=== PATIENT | male | born 1970 | race Caucasian/White ===

== ENCOUNTER 2023-07-08 13:13 | Inpatient (IN) ==
--- NOTE | 2023-07-08 13:29 | ED Triage Note ---
Date of Service July 08, 2023 Provider in Triage Author: Dustin Vidal History of Present Illness This patient was briefly evaluated while in triage. An abbreviated physical exam was performed. This patient is a 52-year-old Male who presents to the ED for evaluation of chest pain, dyspnea, numbness in left hand and L side of face and indigestion/eructation. Started one hour ago. Cold sweat. BP 172/120 at home. Never happened before. No cardiac history. In chest and in back of chest. Described as a pressure. Did take 2 aspirin 1/2 hour ago. Physical Exam GENERAL: 52 year old male. In no acute distress. SKIN: No lesions or rashes. HEART: Regular rate and rhythm. LUNGS: Clear to auscultation. ABDOMEN: Bowel sounds normoactive. No guarding or rigidity. No tenderness of palpation. NEURO: Alert and oriented. No deficits. MUSCULOSKELETAL: No deformities to inspection of the extremities. PSYCH: Patient is pleasant and answers all questions appropriately. Initial orders for labs and / or imaging were placed and patient was placed in the waiting area until a bed is available. Please see further documentation for the full ED course.
[2023-07-08] MEDS ORDERED: ONDANSETRON INJ 2 MG/ML 2 ML VIAL IV STA (13:49)
[2023-07-08] MEDS ORDERED: MoRPHine SULFATE 4 MG/ML 1 ML CARP\\VIAL IV STA (13:49)
--- NOTE | 2023-07-08 13:52 | Emergency Department Note ---
Impression & Plan ACS (acute coronary syndrome), Chest pain, ST elevation myocardial infarction (STEMI), Elevated troponin I level ED Provider Note NAME: JENNIFER GARCÍA AGE: 52 SEX: M : 1970 ARRIVES VIA: Walk-In INFORMANT: Patient, ED PROVIDER(S): Titus Devries DO CHIEF COMPLAINT: Chest pain HPI: The patient is a 52-year-old male who presented to the emergency department for an evaluation of chest pain. The patient describes a rather acute onset of chest pain in his anterior chest. He now notices the pain also in his back. Initially he was very anxious and had some difficulty breathing. Now he states he does not have so much difficulty breathing but continues to have pain in his chest and his back. He denies having any lower extremity swelling or pain. He has had no recent traveling. He has no history of coronary artery disease. He states he has no family history of aortic dissection. I was alerted by the provider in triage that the patient would require room sooner so I evaluated the patient immediately in room A1. ROS: See above HPI for pertinent positives & negatives. A total of 10 systems reviewed and were otherwise negative. PAST MEDICAL HISTORY: See Below PAST SURGICAL HISTORY: See Below FAMILY HISTORY: See Below SOCIAL HISTORY: See Below HOME MEDICATIONS: See Below ALLERGIES: See Below VITALS: See Below PHYSICAL EXAMINATION: GENERAL: The patient is awake and alert. He is very anxious appearing. He appears to be uncomfortable EYES: The conjunctivae are clear. The pupils are round and reactive. EARS, NOSE, MOUTH AND THROAT: The nose is without any evidence of any deformity. NECK: The neck is nontender and supple. RESPIRATORY: Normal respiratory effort is noted there is no evidence of wheezing rhonchi or rales CARDIOVASCULAR: Regular rate and rhythm noted there no murmurs rubs or gallops normal S1 normal S2. GASTROINTESTINAL: The abdomen is soft. Abdomen is nontender. MUSCULOSKELETAL/EXTREMITIES: There is no evidence of gross deformity full range of motion is noted in the hips and shoulders. SKIN: There is no obvious evidence of any rash. There are no petechiae, pallor or cyanosis noted. Pulses are symmetric in both wrists and both feet. NEUROLOGIC: Patient is awake alert and oriented x3 strength is symmetric patellar reflexes are 2+ bilaterally MEDICAL DECISION MAKING: The patient is a 52-year-old male who presented to the emergency department for chest pain. The patient had chest pain with radiation to the back. The patient was taken directly to a critical room because of the elevation in his blood pressure as well as his chest pain. The patient's EKG did appear to be consistent with ischemia in the inferior and posterior guerra. He had no ST segment elevation. The patient was treated with pain medication as well as IV labetalol and IV Lopressor. The patient was reevaluated multiple times. Pain slowly improved. The patient was taken for CT of the chest to rule out dissection. This study was negative. I discussed the patient's laboratory and radiographic studies with him. I discussed his condition with the [facility] hospitalist group as well as the [facility] forestry conservation worker. The patient did have a bedside echo which appeared to show some wall motion abnormalities in the posterior wall. Given his findings as well as his EKG and elevation in troponin his case was also discussed with the cloth dye range operator. He was taken to the cardiac Spool Tender for further evaluation. Triage Nursing notes reviewed. Prior medical records reviewed Vital Signs: reviewed and remarkable for elevated blood pressure. Differential diagnosis: Cardiac ischemia, aortic dissection, pulmonary embolism, pneumothorax, pneumonia, pericarditis, myocarditis, esophageal rupture, GERD, cholecystitis, pancreatitis, musculoskeletal, as well as other pathologies. ER treatment provided: See below Diagnostics interpreted by me: ECG: EKG was obtained in the emergency department. My interpretation is sinus rhythm at 87 bpm. PVC was noted. ST segment depressions were noted in the anterior and inferior leads. No previous tracing was available. A second EKG was obtained in the emergency department. My interpretation is normal sinus rhythm at 87 bpm. There is no ectopy. There was inferior and anterior ST depressions noted. This compares similar to the tracing obtained earlier. Cardiac Monitoring: An order was placed for continuous cardiac monitoring. The monitor shows a rate of 85 bpm with sinus rhythm. Laboratory studies: As stated above and show below. Imaging studies: See below. Radiographic imaging was reviewed by myself Consultation(s): I discussed this case with Lindsey who is on for the [facility] hospitalist group. I discussed this case with Dr. Farrell who is on-call for [facility] cardiology. ED COURSE: Procedures: none Critical Care: I have personally spent greater than 45 minutes of critical care time in the direct management of this patient. This includes bedside care, interpretation of diagnostic studies, and testing, discussion with consultants, patient, and family members, and other required patient management activities. This 45 minutes is in excess of all separately billable procedures. Past Med/Surg History Social History Smoking Status: Current some day smoker Feels Safe at Home: Yes Allergies Allergies Allergy/AdvReac Type Severity Reaction Status Date / Time No Known Allergies Allergy Unverified 07/08/23 14:38 Home Meds Home Medications Medication Instructions Recorded Confirmed No Known Home Medications 07/08/23 07/08/23 Results & Data (ED) Vital Signs Vital Signs - 24 hr 07/08/23 13:26 07/08/23 14:14 07/08/23 14:26 Temperature 36.7 C Temperature Source Temporal Artery Scan Pulse Rate 98 H 95 H 82 Pulse Rate from SpO2 Sensor Respiratory Rate 20 22 Respiratory Effort / Characteristics Non-Labored Spontaneous Respiratory Depth Normal Blood Pressure 190/121 H Blood Pressure Mean 144 Pulse Oximetry 99 99 Oxygen Delivery Method Room Air Room Air Sepsis Recent Fever Within 48 Hours No Sepsis New/Unexplained Change in Mental Status No Sepsis Action Taken by Nursing No Action Required 07/08/23 14:27 07/08/23 14:30 07/08/23 14:39 Temperature Temperature Source Pulse Rate 85 93 H Pulse Rate from SpO2 Sensor 85 Respiratory Rate 13 Respiratory Effort / Characteristics Respiratory Depth Blood Pressure 176/117 H 178/105 H Blood Pressure Mean 136 Pulse Oximetry 100 100 Oxygen Delivery Method Room Air Sepsis Recent Fever Within 48 Hours Sepsis New/Unexplained Change in Mental Status Sepsis Action Taken by Nursing 07/08/23 14:58 07/08/23 15:00 Temperature Temperature Source Pulse Rate 91 H 88 Pulse Rate from SpO2 Sensor Respiratory Rate Respiratory Effort / Characteristics Respiratory Depth Blood Pressure 166/115 H 160/121 H Blood Pressure Mean Pulse Oximetry Oxygen Delivery Method Sepsis Recent Fever Within 48 Hours Sepsis New/Unexplained Change in Mental Status Sepsis Action Taken by [facility] Medications Current Medication List: was personally reviewed by me Laboratory Data Attestation: I reviewed the patient's lab results. 07/08/23 13:58 07/08/23 13:58 Lab Results 07/08/23 07/08/23 07/08/23 Range/Units 13:56 13:58 14:19 WBC 15.15 H (4.8-10.8) K/ul RBC 5.29 (4.70-6.10) M/uL Hgb 15.4 (14.0-18.0) g/dl POC Hgb 15.3 (14.0-18.0) g/dl Hct 43.8 (42.0-52.0) % POC Hct 45 (42-52) % MCV 82.8 (80.0-100.0) fL MCH 29.1 (25.0-34.0) pg MCHC 35.2 (32.0-36.0) g/dL RDW Std Deviation 39.0 (36.4-46.3) fL RDW Coeff of Pauline 12.9 (11.5-14.5) % Plt Count 275 (130-400) K/uL MPV 9.4 (9.4-12.4) fL Immature Gran % (Auto) 0.7 % Neut % (Auto) 73.1 % Lymph % (Auto) 20.2 % Charlton % (Auto) 5.1 % Eos % (Auto) 0.4 % Baso % (Auto) 0.5 % Neut # (Auto) 11.08 H (1.40-6.50) K/uL Lymph # (Auto) 3.06 (1.20-3.40) K/uL Charlton # (Auto) 0.78 H (0.11-0.59) K/uL Eos # (Auto) 0.06 (0.00-0.50) K/uL Baso # (Auto) 0.07 (0.00-0.20) K/uL Immature Gran # (Auto) 0.10 (0.01-0.20) K/uL PT 10.4 (9.0-12.0) Seconds INR 0.9 (0.9-1.1) APTT 24 (21-31) Seconds PTT Ratio 0.9 POC Sodium 139 (135-144) mmol/L Sodium 136 (136-145) mmol/L POC Potassium 4.1 (3.3-5.0) mmol/L Potassium 4.0 (3.5-5.1) mmol/L POC Chloride 103 (101-112) mmol/L Chloride 102 (98-107) mmol/L Carbon Dioxide 24 (21-32) mmol/L POC Total CO2 23 L (24-31) mmol/L Anion Gap 10 (3-11) POC Anion Gap 18.0 (16-25) mmol/L POC BUN 11 (7-18) mg/dl BUN 13 (6-23) mg/dl Creatinine 0.99 (0.6-1.4) mg/dl POC Creatinine 0.9 (0.6-1.3) mg/dl Est Cr Clr Drug Dosing 90.9 ml/min Est GFR ( Amer) 99.7 ml/min Est GFR (Non-Af Amer) 86.0 ml/min BUN/Creatinine Ratio 13.1 (10-20) Glucose 175 H (70-99(Fasting)) mg/dl POC Glucose (other) 181 H (70-99) mg/dl Calcium 9.5 (8.6-10.3) mg/dl POC Ioniz Calcium Michael 1.15 (1.12-1.32) mmol/l Magnesium 2.0 (1.7-2.4) mg/dl Total Bilirubin 0.7 (0.2-1.0) mg/dl AST 16 (13-39) U/L ALT 24 (7-52) U/L Alkaline Phosphatase 57 (34-104) U/L Troponin I High Sens 90.9 H* (0-20) pg/ml Total Protein 8.2 (6.0-8.3) gm/dl Albumin 4.9 (3.4-5.0) gm/dl Globulin 3.3 (2.5-4.0) gm/dl Albumin/Globulin Ratio 1.5 (0.9-2) Lipase 43 (11-82) U/L TSH 1.194 (0.300-4.500) uIu/ml Urine Color Yellow Urine Appearance Clear (Clear) Urine pH 5.5 (4.5-7.5) Ur Specific [place] 1.028 (1.000-1.030) Urine Protein 2+ H (Negative) Urine Glucose (UA) Negative (Negative) Urine Ketones Trace H (Negative) Urine Blood Negative (Negative) Urine Nitrite Negative (Negative) Urine Bilirubin Negative (Negative) Urine Urobilinogen Negative (Negative) Ur Leukocyte Esterase Negative (Negative) Urine WBC (Auto) 1-5 (0-5) /hpf Urine RBC (Auto) 0-4 (0-4) /hpf U Hyaline Cast (Auto) 0 (0-5) /lpf U Epithel Cells (Auto) 0-5 (0-5) /lpf Urine Bacteria (Auto) Negative (Negative) Administered Medications Metoprolol Tartrate (Metoprolol Tartrate 1 Mg/Ml Vial) 5 mg IV NOW STA Stop: 07/08/23 14:58 Last Admin: 07/08/23 15:00 Dose: 5 mg Documented By: AB Discontinued Medications Aspirin (Aspirin Chew 324 Mg) 324 mg PO NOW STA Stop: 07/08/23 14:36 Last Admin: 07/08/23 14:46 Dose: Not Given Documented By: Ioversol (Optiray 320 125ml) 117 ml IV ONCE ONE Stop: 07/08/23 14:08 Last Admin: 07/08/23 14:07 Dose: 117 ml Documented By: ZACHARY Labetalol HCl (Labetalol Hcl Iv 5 Mg/Ml 20ml) 10 mg IV NOW STA Stop: 07/08/23 14:36 Last Admin: 07/08/23 14:39 Dose: 10 mg Documented By: Co-signed By: DAWSON Metoprolol Tartrate (Metoprolol Tartrate 1 Mg/Ml Vial) Confirm Administered Dose 5 mg IV .STK-MED ONE Stop: 07/08/23 14:56 Last Admin: 07/08/23 15:11 Dose: Not Given Documented By: JASS Morphine Sulfate (Morphine Sulfate 4 Mg/Ml 1 Ml Carp\Vial) 4 mg IV NOW STA Stop: 07/08/23 13:50 Last Admin: 07/08/23 13:53 Dose: 4 mg Documented By: Ondansetron HCl (Ondansetron Inj 2 Mg/Ml 2 Ml Vial) 4 mg IV NOW STA Stop: 07/08/23 13:50 Last Admin: 07/08/23 13:53 Dose: 4 mg Documented By: Imaging Data Attestation: I personally reviewed and interpreted this imaging study as follows: My Impression: CT of the chest was obtained in the emergency department. My interpretation is no free air or definite infiltrate, final report below Radiologist's Impression: Chest CTA 07/08/23 13:29 CHEST CTA for AORTIC DISSECTION CT DOSE: 1240.68 mGy.cm HISTORY: Chest pain into back, hypertension, hand tingling TECHNIQUE: Multiaxial CT images of the chest were performed both before and after the intravenous administration of contrast to evaluate the aorta. 3D/MIP images were also obtained. Sagittal and coronal reformations were also reviewed. A dose lowering technique was utilized adhering to the principles of ALARA. COMPARISON STUDY: None. FINDINGS: Noncontrast imaging through the chest shows no evidence for an intramural hematoma within the thoracic aorta. Normal caliber thoracic aorta with no evidence for a dissection. The central pulmonary arteries are patent. The heart is normal in size. No pleural or pericardial effusions. The thyroid gland enhances normally. No mediastinal or hilar lymphadenopathy. Normal esophagus. Limited views the upper abdomen demonstrate a normal spleen and adrenal glands. Hepatic steatosis. No acute fractures. No pneumothorax. A 4 mm nodule within the lingula on image 186. Small bibasilar linear densities favor subsegmental atelectasis are scarring. A 4 mm nodule within the left lower lobe on image 190 and a 4 mm nodule within the left lower lobe on image 186. A 7 mm groundglass nodule right upper lobe on image 152. A 3 mm right middle lobe nodule on image 179. No focal lung consolidations to suggest a pneumonia. No evidence for pulmonary edema. IMPRESSION: 1. No evidence for an aortic dissection. 2. Hepatic steatosis. 3. A few scattered subcentimeter pulmonary nodules as described above. Please refer to the chart below for recommended follow-up. Please refer to below summary of Fleischner criteria recommendations for follow- up of incidental CT nodules (Fernando Man, Guidelines for management of small pulmonary nodules detected on CT scans: A statement from the Fleischner Society, Radiology 237: [id number].) SOLID NODULES Solitary nodule size: <6 mm * Low risk patients: no follow-up needed * high risk patients: optional CT at 12 months Solitary nodule size: 6-8 mm * Low risk patients: follow-up at 6-12 months, then consider further follow-up at 18-24 months * high risk patients: initial follow-up CT at 6-12 months and then at 18-24 months if no change Solitary nodule size: >8 mm * either low or high risk patients - consider follow-up CT at 3 months, and/or CT-PET, and/or biopsy Multiple nodules size: <6 mm * Low risk patients: no routine follow-up * high risk patients: optional CT at 12 months Multiple nodules size: 6-8 mm * Low risk patients: follow-up at 3-6 months, then consider further follow-up at 18-24 months * high risk patients: follow-up at 3-6 months, then at 18-24 months if no change Multiple nodules size: >8 mm * Low risk patients: follow-up at 3-6 months, then consider further follow-up at 18-24 months * high risk patients: follow-up at 3-6 months, then at 18-24 months if no change Note: newly detected indeterminate nodule in persons 35 years of age or older. * Low risk patients: minimal or absent history of smoking and/or other known risk factors * high risk patients: history of smoking or of other known risk factors (e.g. first degree relative with lung cancer, or exposure to asbestos, radon, uranium) * if a nodule up to 8 mm is partly solid or is ground glass further follow-up is required after 24 months to exclude possible slow growing adenocarcinoma (MICHAEL) SUBSOLID NODULES Solitary pure ground-glass nodule * nodule size <6 mm - no CT follow-up required * nodule size >=6 mm - follow-up CT at 6-12 months, then every 2 years until 5 years Solitary part-solid nodule * nodule size <6 mm - no CT follow-up required * nodule size >=6 mm - follow-up CT at 3-6 months. If unchanged, and solid component remains <6 mm, then annual follow-up for 5 years Multiple subsolid nodules * nodule size <6 mm - follow-up CT at 3-6 months, consider further follow-up at 2 and 4 years if stable * nodule size >=6 mm - follow-up CT at 3-6 months, subsequent management based on the most suspicious nodule(s) ACT 112: Positive. There are findings on this exam that require communication between the performing entity and the patient following Patient Test Result Information Act ([place] Act 112) guidelines. Electronically signed by: Samir Payton M.D. 07/08/2023 2:32 PM Discharge Plan Visit Data Chief Complaint: Cardiac Assessment Stated Complaint: CHEST PAINS, NUMB HAND, FACIAL NUMBNESS, SOB ED Provider: Titus Devries Discharge Problem: ACS (acute coronary syndrome), Chest pain, ST elevation myocardial infarction (STEMI), Elevated troponin I level Patient Disposition: Being Evaluated by Hospitalist Forms Stand Alone Forms: [employer] Prescriptions Prescriptions: No Action No Known Home Medications Referrals Referrals: PCP,NO [Primary Care Provider] - Discharge Problem: Chest pain Qualifiers: Chest pain type: unspecified Qualified Code(s): R07.9 - Chest pain, unspecified ST elevation myocardial infarction (STEMI) Qualifiers: Involved coronary artery: unspecified coronary artery Qualified Code(s): I21.3 - ST elevation (STEMI) myocardial infarction of unspecified site
[2023-07-08] MEDS ORDERED: OPTIRAY 320 125ml IV ONE (14:07)
[2023-07-08 14:09] LABS: iSTAT Creatinine 0.9 mg/dl (0.6-1.3); iSTAT Hemoglobin 15.3 g/dl (14.0-18.0); iSTAT Ionized Calcium 1.15 mmol/l (1.12-1.32); iSTAT Potassium 4.1 mmol/L (3.3-5.0)
[2023-07-08 14:10] LABS: Basophils # (auto) 0.07 K/uL (0.00-0.20); Basophils % (auto) 0.5 %; Eosinophils # (auto) 0.06 K/uL (0.00-0.50); Eosinophils % (auto) 0.4 %; Hematocrit (blood only) 43.8 % (42.0-52.0); Hemoglobin 15.4 g/dl (14.0-18.0); Immature Granulocytes % (auto) 0.7 %; Lymphocytes # (auto) 3.06 K/uL (1.20-3.40); Lymphocytes % (auto) 20.2 %; Mean Corpuscular Hemoglobin 29.1 pg (25.0-34.0); Mean Corpuscular Hgb Conc 35.2 g/dL (32.0-36.0); Mean Corpuscular Volume 82.8 fL (80.0-100.0); Mean Platelet Volume 9.4 fL (9.4-12.4); Monocytes # (auto) 0.78 K/uL (0.11-0.59); Monocytes % (auto) 5.1 %; Neutrophils # (auto) 11.08 K/uL (1.40-6.50); Neutrophils % (auto) 73.1 %; Platelet Count 275 K/uL (130-400); RDW Coefficient of Variation 12.9 % (11.5-14.5); Red Blood Count 5.29 M/uL (4.70-6.10); White Blood Count 15.15 K/ul (4.8-10.8)
[2023-07-08 14:28] LABS: Albumin Globulin Ratio 1.5 (0.9-2); Albumin Level 4.9 gm/dl (3.4-5.0); BUN Creatinine Ratio 13.1 (10-20); Bilirubin,Total 0.7 mg/dl (0.2-1.0); Calcium 9.5 mg/dl (8.6-10.3); Creatinine Clr Calc Pharmacy 90.9 ml/min; Est GFR (African American) 99.7 ml/min; Globulin 3.3 gm/dl (2.5-4.0); Total Protein 8.2 gm/dl (6.0-8.3)
--- NOTE | 2023-07-08 14:33 | CT Scan Report ---
CHEST CTA for AORTIC DISSECTION CT DOSE: 1240.68 mGy.cm HISTORY: Chest pain into back, hypertension, hand tingling TECHNIQUE: Multiaxial CT images of the chest were performed both before and after the intravenous adm inistration of contrast to evaluate the aorta. 3D/MIP images were also obtained. Sagittal and coronal reformations were also reviewed. A dose lowering technique was utilized adhering to the principles of ALARA. COMPARISON STUDY: None. FINDINGS: Noncontrast imaging through the chest shows no evidence for an intramural hematoma within t he thoracic aorta. Normal caliber thoracic aorta with no evidence for a dissection. The central pulmo nary arteries are patent. The heart is normal in size. No pleural or pericardial effusions. The thyro id gland enhances normally. No mediastinal or hilar lymphadenopathy. Normal esophagus. Limited views the upper abdomen demonstrate a normal spleen and adrenal glands. Hepatic steatosis. No acute fractur es. No pneumothorax. A 4 mm nodule within the lingula on image 186. Small bibasilar linear densities favor subsegmental atelectasis are scarring. A 4 mm nodule within the left lower lobe on image 190 an d a 4 mm nodule within the left lower lobe on image 186. A 7 mm groundglass nodule right upper lobe o n image 152. A 3 mm right middle lobe nodule on image 179. No focal lung consolidations to suggest a pneumonia. No evidence for pulmonary edema. IMPRESSION: 1. No evidence for an aortic dissection. 2. Hepatic steatosis. 3. A few scattered subcentimeter pulmonary nodules as described above. Please refer to the chart belo w for recommended follow-up. Please refer to below summary of Fleischner criteria recommendations for follow-up of incidental CT n odules (Fernando Man, Guidelines for management of small pulmonary nodules detected on CT scans: A sta tement from the Fleischner Society, Radiology 237: [phone].) SOLID NODULES Solitary nodule size: <6 mm * Low risk patients: no follow-up needed * high risk patients: optional CT at 12 months Solitary nodule size: 6-8 mm * Low risk patients: follow-up at 6-12 months, then consider further follow-up at 18-24 months * high risk patients: initial follow-up CT at 6-12 months and then at 18-24 months if no change Solitary nodule size: >8 mm * either low or high risk patients - consider follow-up CT at 3 months, and/or CT-PET, and/or biopsy Multiple nodules size: <6 mm * Low risk patients: no routine follow-up * high risk patients: optional CT at 12 months Multiple nodules size: 6-8 mm * Low risk patients: follow-up at 3-6 months, then consider further follow-up at 18-24 months * high risk patients: follow-up at 3-6 months, then at 18-24 months if no change Multiple nodules size: >8 mm * Low risk patients: follow-up at 3-6 months, then consider further follow-up at 18-24 months * high risk patients: follow-up at 3-6 months, then at 18-24 months if no change Note: newly detected indeterminate nodule in persons 35 years of age or older. * Low risk patients: minimal or absent history of smoking and/or other known risk factors * high risk patients: history of smoking or of other known risk factors (e.g. first degree relative with lung cancer, or exposure to asbestos, radon, uranium) * if a nodule up to 8 mm is partly solid or is ground glass further follow-up is required after 24 m onths to exclude possible slow growing adenocarcinoma (MICHAEL) SUBSOLID NODULES Solitary pure ground-glass nodule * nodule size <6 mm - no CT follow-up required * nodule size >=6 mm - follow-up CT at 6-12 months, then every 2 years until 5 years Solitary part-solid nodule * nodule size <6 mm - no CT follow-up required * nodule size >=6 mm - follow-up CT at 3-6 months. If unchanged, and solid component remains <6 mm, then annual follow-up for 5 years Multiple subsolid nodules * nodule size <6 mm - follow-up CT at 3-6 months, consider further follow-up at 2 and 4 years if sta ble * nodule size >=6 mm - follow-up CT at 3-6 months, subsequent management based on the most suspiciou s nodule(s) ACT 112: Positive. There are findings on this exam that require communication between the performing entity and the patient following Patient Test Result Information Act ([place] Act 112) guidelines. Electronically signed by: Samir Payton M.D. 07/08/2023 2:32 PM
[2023-07-08] MEDS ORDERED: LABETALOL HCL IV 5 MG/ML 20ML IV STA (14:35)
[2023-07-08] MEDS ORDERED: ASPIRIN CHEW 324 MG PO STA (14:35)
[2023-07-08 14:37] LABS: Troponin I High Sensitivity 90.9 pg/ml (0-20)
[2023-07-08] MEDS ORDERED: Heparin IV Adult Wt-Based Low-Dose w/ INITIAL Bolus Protocol IV STA (14:43)
[2023-07-08 14:44] LABS: Thyroid Stimulating Hormone 1.194 uIu/ml (0.300-4.500)
--- NOTE | 2023-07-08 14:50 | Electrocardiogram Report ---
Test Reason : Blood Pressure : / mmHG Vent. Rate : 087 BPM Atrial Rate : 087 BPM P-R Int : 170 ms QRS Dur : 090 ms QT Int : 372 ms P-R-T Axes : 077 073 060 degrees QTc Int : 447 ms Sinus rhythm with occasional Premature ventricular complexes Left atrial enlargement Diffuse Nonspecific ST abnormality Abnormal ECG No previous ECGs available Confirmed by Jayden Mckeon ([id number]) on 07/08/2023 2:49:49 PM Referred By: REFERRED SELF Confirmed By:Jayden Mckeon
[2023-07-08 14:51] LABS: Appearance Urine Clear (Clear); Bacteria Urine Automated Negative (Negative); Bilirubin Urine Negative (Negative); Blood Urine Negative (Negative); Cast Urine Automated 0 /lpf (0-5); Color Urine Yellow; Epithelial Cell Urine Auto 0-5 /lpf (0-5); Glucose Urine UA Negative (Negative); Ketones Urine Trace (Negative); Leukocyte Esterase Urine Negative (Negative); Nitrite Urine Negative (Negative); Protein Urine 2+ (Negative); RBC Urine Automated 0-4 /hpf (0-4); Specific Gravity Urine 1.028 (1.000-1.030); Urobilinogen Urine Negative (Negative); pH Urine 5.5 (4.5-7.5)
[2023-07-08] MEDS ORDERED: METOPROLOL TARTRATE 1 MG/ML VIAL IV ONE (14:55)
[2023-07-08] MEDS ORDERED: METOPROLOL TARTRATE 1 MG/ML VIAL IV STA (14:57)
[2023-07-08] MEDS ORDERED: HEPARIN SOD (PORCINE) 1000 UNIT/ML IV ONE ×3 (14:58→17:00)
[2023-07-08 14:59] LABS: INR 0.9 (0.9-1.1); Partial Thromboplastin Ratio 0.9; Partial Thromboplastin Time 24 Seconds (21-31); Prothrombin Time 10.4 Seconds (9.0-12.0)
[2023-07-08] MEDS ORDERED: HEPARIN SODIUM/DEXTROSE 25,000 UNITS/500 ML BAG IV SCH ×2 (15:00→16:45)
--- NOTE | 2023-07-08 15:24 | History & Physical Report ---
Date of Service July 08, 2023 Assessment & Plan (1) Chest pain: (2) NSTEMI (non-ST elevated myocardial infarction): Plan: Patient is 48-year-old male with PMH tobacco use presented to ER with c/o CP, SOB, diaphoresis today. Toady patient arrived to ER with continued chest pain and back pain. He was hypertensive with BP 190/121 and pulse of 98, R: 20, 99% on RA and was afebrile. Initial concern for dissection and had CTA chest that was negative for aortic dissection. Initial troponin: 90. EKG with sinus rhythm rate 87 with PVC, + ST depression septal, anterior leads. In ER given labetalol 10mg IV, Lopressor 5mg IV, Zofran, morphine 4mg IV. Patient reports continued CP 6/10 on pain scale. Repeat vitals with HR: 88, BP: 160/121. Heparin was ordered however patient taken to liaison inspection laboratory assistant prior to administration. Patient has refused cardiac cath at this time. Echo: EF: 55-60%, mild concentric LVH, small sized apical wall motion abnormality with hypokinesis of the segments, Grade I diastolic dysfunction Monitor Vitals Repeat EKG in am Will trend troponin lipid panel in AM. Start atorvastatin Start daily aspirin Start metoprolol tartrate 25mg po BID Nitropaste IV Heparin Morphine prn Cardiology consult, Seen by Dr Farrell, and interventionalist car painter, Dr Ferrara. Patient has denied cardiac cath. It is reported he may re-consider tomorrow. Will make NPO midnight CBC, BMP in am (3) Elevated glucose: Plan: Random glucose: 175 A1c in AM Novolog sliding scale per protocol (4) Abnormal CT scan, chest: (5) Dyslipidemia: Plan: 07/16/21 Lipid panel: Total: 252, LDL: 180, HDL: 41, Triglycerides: 155. Lipid panel in am Start atorvastatin (6) Tobacco use: Plan: Patient reported to have cut back Smoking cessation encouraged (7) Pulmonary nodules: Plan: CTA Chest: 4 mm nodule, 4 mm nodule within the left lower lobe, 4 mm nodule within the left lower lobe, a 7 mm groundglass nodule right upper lobe, 3 mm right middle lobe nodule Will need follow up with outpatient CT chest DVT Prophylaxis On IV Heparin Full Code as per discussion with pt Does not follow with PCP regularly, In past has been seen by [facility] PCP for routine care Pt was seen and care coordinated with Dr Alvarado. See addendum History of Present Illness Chief Complaint: CP Primary Care Provider: NO PCP Patient is 48-year-old male with PMH tobacco use presented to ER with c/o CP today. History obtained from patient and outpatient chart review. 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 Also describes pain in his back. He states felt anxious and SOB. States had sweats, left hand numbness, and indigestion sensation. Reports took two aspirin prior to ER arrival. States had significant other come get him from work and take him home as he wasn't feeling well. Then decided to present to ER. Denies fever/chills, N/V/D/C, DOE, dizziness, syncope, vision changes, cough, sore throat, rhinorrhea, abdominal pain, extremity weakness, extremity edema, rashes, or urinary symptoms. Caroline patient arrived to ER with continued chest pain and back pain. He was hypertensive with BP 190/121 and pulse of 98, R: 20, 99% on RA and was afebrile. Initial concern for dissection and had CTA chest that was negative for aortic dissection. Initial troponin: 90. EKG with sinus rhythm rate 87 with PVC, + ST depression septal, anterior leads. In ER given labetalol 10mg IV, Lopressor 5mg IV, Zofran, morphine 4mg IV. Patient reports continued CP 6/10 on pain scale. Repeat vitals with HR: 88, BP: 160/121. Heparin was ordered however patient taken to liaison inspection laboratory assistant prior to administration. Patient has refused cardiac cath at this time. Per outpatient chart review: 07/16/21 seen in outpatient PCP office for intermittent episodes of CP, SOB lasted several minutes and self-resolved. No reported exercise intolerance at that time. EKG at that time was sinus rhythm, right atrial enlargement. 07/16/21 Lipid panel: Total: 252, LDL: 180, HDL: 41, Triglycerides: 155. Allergies Allergy/AdvReac Type Severity Reaction Status Date / Time No Known Allergies Allergy Unverified 07/08/23 14:38 Home Medications Medication Instructions Recorded Confirmed Type No Known Home Medications 07/08/23 07/08/23 History Past Med/Surg History Medical History Dyslipidemia Tobacco use Family History Father Dyslipidemia Cancer Other Diabetes Social History Smoking Status: Current every day smoker Tobacco Type: Cigarettes Cigarettes Per Day: 2-3; Second Hand Exposure: No; Do You Dip or Chew Tobacco: No; Tobacco Cessation Education Requested by Patient: No Hx Alcohol Use: Yes Alcohol type: beer Hx Substance Use: No Preferred Language: Occitan Communication Ability: Effective Director Of Field Sales Required: No Beliefs That Will Affect Care: None Current Living Situation: Spouse and Family Other Information That Helps Us Care for You: No Feels Safe at Home: Yes Safety Concerns: Feels Safe At This Time Assistive Devices: Glasses Review of Systems Review of Systems: All systems reviewed & are unremarkable except as noted in HPI & below Physical Exam Physical Exam: PE per Dr Alvarado Results & Data Results & Data Vital Signs (Past 12 Hours) Vital Signs Temp Pulse Resp BP Pulse Ox O2 Del Method 07/08/23 15:17 Room Air 07/08/23 15:00 160/121 H 07/08/23 15:00 86 22 98 07/08/23 15:00 88 160/121 H 07/08/23 14:58 89 21 98 07/08/23 14:58 166/115 H 07/08/23 14:58 91 H 166/115 H 07/08/23 14:40 96 H 22 100 07/08/23 14:40 178/105 H 07/08/23 14:39 93 H 178/105 H 07/08/23 14:30 176/117 H 07/08/23 14:30 84 15 100 07/08/23 14:30 85 13 176/117 H 100 07/08/23 14:27 100 Room Air 07/08/23 14:26 82 07/08/23 14:14 95 H 22 99 Room Air 07/08/23 13:26 36.7 C 98 H 20 190/121 H 99 Room Air Laboratory Results Short CBC 07/08/23 Range/Units 13:58 WBC 15.15 H (4.8-10.8) K/ul Hgb 15.4 (14.0-18.0) g/dl Hct 43.8 (42.0-52.0) % Plt Count 275 (130-400) K/uL BMP 07/08/23 13:58 Sodium 136 Potassium 4.0 Chloride 102 Carbon Dioxide 24 BUN 13 Creatinine 0.99 Glucose 175 H Calcium 9.5 Liver Function 07/08/23 Range/Units 13:58 Total Bilirubin 0.7 (0.2-1.0) mg/dl AST 16 (13-39) U/L ALT 24 (7-52) U/L Alkaline Phosphatase 57 (34-104) U/L Albumin 4.9 (3.4-5.0) gm/dl Urine 07/08/23 Range/Units 14:19 Urine Color Yellow Urine Appearance Clear (Clear) Urine pH 5.5 (4.5-7.5) Ur Specific [place] 1.028 (1.000-1.030) Urine Protein 2+ H (Negative) Urine Glucose (UA) Negative (Negative) Diagnostic Findings Chest CTA 07/08/23 13:29 CHEST CTA for AORTIC DISSECTION CT DOSE: 1240.68 mGy.cm HISTORY: Chest pain into back, hypertension, hand tingling TECHNIQUE: Multiaxial CT images of the chest were performed both before and after the intravenous administration of contrast to evaluate the aorta. 3D/MIP images were also obtained. Sagittal and coronal reformations were also reviewed. A dose lowering technique was utilized adhering to the principles of ALARA. COMPARISON STUDY: None. FINDINGS: Noncontrast imaging through the chest shows no evidence for an intramural hematoma within the thoracic aorta. Normal caliber thoracic aorta with no evidence for a dissection. The central pulmonary arteries are patent. The heart is normal in size. No pleural or pericardial effusions. The thyroid gland enhances normally. No mediastinal or hilar lymphadenopathy. Normal esophagus. Limited views the upper abdomen demonstrate a normal spleen and adrenal glands. Hepatic steatosis. No acute fractures. No pneumothorax. A 4 mm nodule within the lingula on image 186. Small bibasilar linear densities favor subsegmental atelectasis are scarring. A 4 mm nodule within the left lower lobe on image 190 and a 4 mm nodule within the left lower lobe on image 186. A 7 mm groundglass nodule right upper lobe on image 152. A 3 mm right middle lobe nodule on image 179. No focal lung consolidations to suggest a pneumonia. No evidence for pulmonary edema. IMPRESSION: 1. No evidence for an aortic dissection. 2. Hepatic steatosis. 3. A few scattered subcentimeter pulmonary nodules as described above. Please refer to the chart below for recommended follow-up. Please refer to below summary of Fleischner criteria recommendations for follow- up of incidental CT nodules (Fernando Man, Guidelines for management of small pulmonary nodules detected on CT scans: A statement from the Fleischner Society, Radiology 237: [phone].) SOLID NODULES Solitary nodule size: <6 mm * Low risk patients: no follow-up needed * high risk patients: optional CT at 12 months Solitary nodule size: 6-8 mm * Low risk patients: follow-up at 6-12 months, then consider further follow-up at 18-24 months * high risk patients: initial follow-up CT at 6-12 months and then at 18-24 months if no change Solitary nodule size: >8 mm * either low or high risk patients - consider follow-up CT at 3 months, and/or CT-PET, and/or biopsy Multiple nodules size: <6 mm * Low risk patients: no routine follow-up * high risk patients: optional CT at 12 months Multiple nodules size: 6-8 mm * Low risk patients: follow-up at 3-6 months, then consider further follow-up at 18-24 months * high risk patients: follow-up at 3-6 months, then at 18-24 months if no c hange Multiple nodules size: >8 mm * Low risk patients: follow-up at 3-6 months, then consider further follow-up at 18-24 months * high risk patients: follow-up at 3-6 months, then at 18-24 months if no change Note: newly detected indeterminate nodule in persons 35 years of age or older. * Low risk patients: minimal or absent history of smoking and/or other known risk factors * high risk patients: history of smoking or of other known risk factors (e.g. first degree relative with lung cancer, or exposure to asbestos, radon, uranium) * if a nodule up to 8 mm is partly solid or is ground glass further follow-up is required after 24 months to exclude possible slow growing adenocarcinoma (MICHAEL) SUBSOLID NODULES Solitary pure ground-glass nodule * nodule size <6 mm - no CT follow-up required * nodule size >=6 mm - follow-up CT at 6-12 months, then every 2 years until 5 years Solitary part-solid nodule * nodule size <6 mm - no CT follow-up required * nodule size >=6 mm - follow-up CT at 3-6 months. If unchanged, and solid component remains <6 mm, then annual follow-up for 5 years Multiple subsolid nodules * nodule size <6 mm - follow-up CT at 3-6 months, consider further follow-up at 2 and 4 years if stable * nodule size >=6 mm - follow-up CT at 3-6 months, subsequent management based on the most suspicious nodule(s) ACT 112: Positive. There are findings on this exam that require communication between the performing entity and the patient following Patient Test Result Information Act ([place] Act 112) guidelines. Electronically signed by: Samir Payton M.D. 07/08/2023 2:32 PM ECG Additional Comments: EKG with sinus rhythm rate 87 with PVC, + ST depression septal, anterior leads per my interpretation Supervising Physician Co-Signing Physician Notes I have seen and examined the patient and have discussed the case with the provider above. I agree with the assessment and plan as stated. 52-year-old man presents with acute coronary syndrome. Workup includes an abnormal EKG, elevation and highly sensitive troponin and echocardiogram with LAD territory wall motion abnormality. As noted above, he is declining heart catheterization despite recommendations from cardiology to proceed. He is still reporting a low amount of chest discomfort despite the addition of Nitropaste. We discussed adding additional morphine at this time and he was fine with that. and son were at bedside and assist with history. 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 He states he slept 1 hour and took 4 cups of coffee which is normal for him in fact he drinks typically more than that on a daily basis. 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 He has had symptoms for the majority of this day. He smokes occasionally, and denies any known family history of early CAD. Father from pancreatic cancer. He reports having chest pain in the past that he felt was stress related. He does not offer if this was ever worked up medically. On exam he is mentating normally and in no acute distress. BP is 166/104 pulse 91, no increased respiratory effort and he is oxygenating well on room air. He is afebrile. Cardiac exam reveals regular rate and rhythm with S1/2 heard and no murmurs Rubs. He Has No Peripheral Edema. There Is No JVD Present. Extremities Are Warm and Well-Perfused. Lungs Are Clear to Auscultation Bilaterally. Abdomen Soft Nontender Not distended. Workup as noted above. Repeat highly sensitive troponin is 107,000 (from 90). Labs, EKG and imaging reviewed. This is a 52 yo smoker with dyslipidemia and elevated blood pressure presenting with an NSTEMI. We will cont medical therapy with metoprolol, nitropaste, morphine PRN, atorvastatin and aspirin. He continues to have chest pain and is getting more morphine now. He and his were counseled on worsening symptoms overnight. Patient is wanting to re-evaluate heart catheterization in the morning. DO Christiano (1) Chest pain Chest pain type: unspecified Qualified Code(s): R07.9 - Chest pain, unspecified
--- NOTE | 2023-07-08 16:20 | Cardiology Consultation ---
Date of Consultation July 08, 2023 Assessment & Plan (1) NSTEMI (non-ST elevated myocardial infarction): (2) Tobacco use: (3) Dyslipidemia: Plan -Patient presents with symptoms consistent with angina new onset today, with abnormal EKG suggestive of anterior ischemia, elevation in high-sensitivity troponin at 91 PG per mL. -Echocardiogram reveals LAD territory wall motion abnormality. Patient had received aspirin, as well as a dose of labetalol. Metoprolol 5 minutes IV administered while I was at the bedside in the emergency department for further heart rate and blood pressure control. Patient with ongoing angina. I had a discussion with the patient and his spouse. My recommendation was for emergent cardiac catheterization. I discussed the risks and benefits of cardiac catheterization with the patient in detail as well as his spouse. The case was discussed with Dr. Ferrara of interventional cardiology and the patient was transferred to the cardiac catheterization laboratory holding area. Dr. Ferrara discussed the patient's findings with him and the patient declines cardiac catheterization today. He states he would like to think about things more. Will therefore transfer the patient to the PCU pending bed availability, and proceed with ongoing medication therapy with aspirin and metoprolol tartrate 25 mg twice daily. Topical nitroglycerin will be applied for further blood pressure and antianginal effect. The patient had a lipid panel performed as an outpatient in June,. It was likely a nonfasting sample as it was drawn at just before 3 in the afternoon at the time. Total cholesterol was 252, and the LDL cholesterol was 180 mg/dL. A previous sample performed in 2009 revealed a total cholesterol of 226 and an LDL cholesterol of 152 mg/dL. Findings would suggest the patient has had longstanding uncontrolled, untreated dyslipidemia. Will repeat a lipid panel tomorrow, and start high intensity statin therapy in the meantime. Case discussed with Dia Queen [facility] , and Dr Ferrara for the purpose of coordinating care. I spent a total of 55 minutes on the date of service in preparation, delivery, and documentation of the care provided to this patient, excluding any time spent in the performance of separately billed services. History of Present Illness Attending Physician: Buster Ferrara MD, PhD History of Present Illness Mr Mcneil is a 52 year old male seen in cardiology consultation per the request of Dr Devries for the evaluation of chest pain with findings concerning for an acute coronary syndrome. Patient initially seen by the undersigned at 1458. At that time he described ongoing 6/10 midline chest discomfort. An echocardiogram was performed at the bedside revealing a small focal apical wall motion abnormality. 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 He states he had not had such discomfort before. He presented to the emergency department for evaluation. His initial blood pressure as obtained at 1326 was 190/121. A CT angiogram of the chest was performed that was negative for thoracic aortic dissection. An EKG was performed at 1343 that revealed sinus rhythm at [address] segment depression in the anterior precordial leads V1V4 with reciprocal subtle ST elevation in lead aVR . A PVC was also noted. The repolarization changes are abnormal and suggestive of ischemia and are new compared to a previous outpatient tracing dating back to June, per patient's outpatient [facility] chart. Family History: Patient states his father had high cholesterol. He perhaps had a heart problem but the patient does not know any specifics Social History: Patient is and is accompanied by his spouse at the bedside. He is originally from [facility]. 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 Allergies Allergy/AdvReac Type Severity Reaction Status Date / Time No Known Allergies Allergy Unverified 07/08/23 14:38 Home Medications Medication Instructions Recorded Confirmed Type No Known Home Medications 07/08/23 07/08/23 History Patient History Medical History Tobacco use Family History Father Dyslipidemia Cancer Other Diabetes Social History Smoking Status: Current some day smoker Feels Safe at Home: Yes Review of Systems Review of Systems: All systems reviewed & are unremarkable except as noted in HPI & below Physical Exam Constitutional: WD/WN, vitals as above Eyes: PERRL, conjunctivae normal, anicteric sclerae Respiratory: normal respiratory effort, lungs clear to auscultation Cardiovascular: RRR, no murmur, no edema Gastrointestinal (Abdomen): normal bowel sounds, soft, nontender, no hepatosplenomegaly Neurologic: PERRL, EOMI, accommodation nl, no face palsy, no dysarthria Results & Data Vital Signs (Past 12 Hours) Vital Signs Temp Pulse Resp BP Pulse Ox O2 Del Method 07/08/23 15:17 Room Air 07/08/23 15:00 160/121 H 07/08/23 15:00 86 22 98 07/08/23 15:00 88 160/121 H 07/08/23 14:58 89 21 98 07/08/23 14:58 166/115 H 07/08/23 14:58 91 H 166/115 H 07/08/23 14:40 96 H 22 100 07/08/23 14:40 178/105 H 07/08/23 14:39 93 H 178/105 H 07/08/23 14:30 176/117 H 07/08/23 14:30 84 15 100 07/08/23 14:30 85 13 176/117 H 100 07/08/23 14:27 100 Room Air 07/08/23 14:26 82 07/08/23 14:14 95 H 22 99 Room Air 07/08/23 13:26 36.7 C 98 H 20 190/121 H 99 Room Air Laboratory Results Cardiac Enzymes 07/08/23 Range/Units 13:58 AST 16 (13-39) U/L Troponin I High Sens 90.9 H* (0-20) pg/ml Coagulation 07/08/23 Range/Units 13:58 PT 10.4 (9.0-12.0) Seconds APTT 24 (21-31) Seconds CBC 07/08/23 Range/Units 13:58 WBC 15.15 H (4.8-10.8) K/ul RBC 5.29 (4.70-6.10) M/uL Hgb 15.4 (14.0-18.0) g/dl Hct 43.8 (42.0-52.0) % Plt Count 275 (130-400) K/uL Neut # (Auto) 11.08 H (1.40-6.50) K/uL Lymph # (Auto) 3.06 (1.20-3.40) K/uL [place] # (Auto) 0.78 H (0.11-0.59) K/uL Eos # (Auto) 0.06 (0.00-0.50) K/uL Baso # (Auto) 0.07 (0.00-0.20) K/uL Comprehensive Metabolic Panel 07/08/23 Range/Units 13:58 Sodium 136 (136-145) mmol/L Potassium 4.0 (3.5-5.1) mmol/L Chloride 102 (98-107) mmol/L Carbon Dioxide 24 (21-32) mmol/L BUN 13 (6-23) mg/dl Creatinine 0.99 (0.6-1.4) mg/dl Glucose 175 H (70-99(Fasting)) mg/dl Calcium 9.5 (8.6-10.3) mg/dl AST 16 (13-39) U/L ALT 24 (7-52) U/L Alkaline Phosphatase 57 (34-104) U/L Total Protein 8.2 (6.0-8.3) gm/dl Albumin 4.9 (3.4-5.0) gm/dl Intake and Output 07/08/23 07/08/23 07/08/23 06:59 14:59 22:59 Other: Weight 88.9 kg Weight Measurement Method Chair Scale Patient Weight 07/09/23 06:59 Weight 88.9 kg Diagnostic Findings Echocardiogram performed at the bedside and reviewed/interpreted independently: Small focal apical wall motion abnormality. LVEF normal at 55-60%. Mild mitral regurgitation. Grade 1 diastolic dysfunction.
[2023-07-08] MEDS ORDERED: Heparin IV Adult Wt-Based Standard w/ INITIAL Bolus Protocol IV SCH (16:22)
[2023-07-08] MEDS ORDERED: HEPARIN 25000 UNIT/500 ML D5W IV ONE (16:23)
[2023-07-08] MEDS ORDERED: NITROGLYCERIN 2% OINTMENT 30GM TUBE EXT SCH (16:30)
[2023-07-08] MEDS ORDERED: POLYETHYLENE (MIRALAX) 17 GM PACK PO PRN (16:39)
[2023-07-08] MEDS ORDERED: ONDANSETRON INJ 2 MG/ML 2 ML VIAL IV PRN (16:39)
[2023-07-08] MEDS ORDERED: ACETAMINOPHEN 325 MG TAB PO PRN (16:39)
[2023-07-08] MEDS ORDERED: GLUCAGON FOR INJ 1 MG VIAL SQ PRN ×2 (17:03→22:35)
[2023-07-08] MEDS ORDERED: GLUCOSE 10 TAB/TUBE PO PRN ×2 (17:03→22:35)
[2023-07-08] MEDS ORDERED: CARBOHYDRATES FOR HYPOGLYCEMIA PO PRN ×2 (17:03→22:35)
[2023-07-08] MEDS ORDERED: DEXTROSE 50% 50 ML SYRINGE IV PRN ×2 (17:03→22:35)
[2023-07-08] MEDS ORDERED: GLUCOSE 40% GEL 15 GM TUBE PO PRN ×2 (17:03→22:35)
[2023-07-08] MEDS ORDERED: MoRPHine SULFATE 2 MG/ML CARP IV STA (18:16)
[2023-07-08] MEDS ORDERED: MoRPHine SULFATE 2 MG/ML CARP IV PRN (18:16)
[2023-07-08] MEDS ORDERED: NITROGLYCERIN/D5W 100MCG/ML 250 ML IV SCH (19:00)
[2023-07-08] MEDS ORDERED: STAT IV Infusion **Titration per Protocol STA (19:00)
[2023-07-08] MEDS ORDERED: TICAGRELOR 90 MG TAB PO STA (19:00)
[2023-07-08] MEDS ORDERED: NITROGLYCERIN/D5W 100 MCG/ML BTL ONE (19:01)
[2023-07-08] MEDS: ATORVASTATIN 40 MG TAB PO SCH (20:47)
[2023-07-08] MEDS: METOPROLOL TARTRATE 25 MG TAB PO SCH (20:47)
[2023-07-08] MEDS ORDERED: ICU Protocol for HYPERglycemia SCH (21:00)
[2023-07-08] MEDS ORDERED: INSULIN ASPART PER UNIT CHARGE SC SCH (21:00)
--- NOTE | 2023-07-08 21:44 | Critical Care Consultation ---
Date of Consultation July 08, 2023 History of Present Illness Reason for Consultation: Mr. Eliz Mcneil is a 52YO M with a history of hypertension, hyperlipidemia, tobacco use disorder (< 1/2PPD), excessive caffeine intake who presented to [facility] ED on 07/08/2023 Attending Physician: Betty Alvarado DO Allergies Allergy/AdvReac Type Severity Reaction Status Date / Time No Known Allergies Allergy Unverified 07/08/23 14:38 Home Medications Medication Instructions Recorded Confirmed Type No Known Home Medications 07/08/23 07/08/23 History Patient History Medical History Dyslipidemia Tobacco use Family History Father Dyslipidemia Cancer Other Diabetes Social History Smoking Status: Current every day smoker Tobacco Type: Cigarettes Cigarettes Per Day: 2-3; Second Hand Exposure: No; Do You Dip or Chew Tobacco: No; Tobacco Cessation Education Requested by Patient: No Hx Alcohol Use: Yes Alcohol type: beer Hx Substance Use: No Preferred Language: Filipino Communication Ability: Effective 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: No Beliefs That Will Affect Care: None Current Living Situation: Spouse and Family Other Information That Helps Us Care for You: No Feels Safe at Home: Yes Safety Concerns: Feels Safe At This Time Assistive Devices: Glasses Results & Data Results & Data Vital Signs (Past 12 Hours) Vital Signs Temp Pulse Pulse Resp BP BP Pulse Ox 07/08/23 20:44 88 145/83 H 07/08/23 16:40 36.9 C 91 H 18 166/104 H 97 07/08/23 15:17 07/08/23 15:00 160/121 H 07/08/23 15:00 86 22 98 07/08/23 15:00 88 160/121 H 07/08/23 14:58 89 21 98 07/08/23 14:58 166/115 H 07/08/23 14:58 91 H 166/115 H 07/08/23 14:40 96 H 22 100 07/08/23 14:40 178/105 H 07/08/23 14:39 93 H 178/105 H 07/08/23 14:30 176/117 H 07/08/23 14:30 84 15 100 07/08/23 14:30 85 13 176/117 H 100 07/08/23 14:27 100 07/08/23 14:26 82 07/08/23 14:14 95 H 22 99 07/08/23 13:26 36.7 C 98 H 20 190/121 H 99 O2 Del Method 07/08/23 20:44 07/08/23 16:40 Room Air 07/08/23 15:17 Room Air 07/08/23 15:00 07/08/23 15:00 07/08/23 15:00 07/08/23 14:58 07/08/23 14:58 07/08/23 14:58 07/08/23 14:40 07/08/23 14:40 07/08/23 14:39 07/08/23 14:30 07/08/23 14:30 07/08/23 14:30 07/08/23 14:27 Room Air 07/08/23 14:26 07/08/23 14:14 Room Air 07/08/23 13:26 Room Air Coding Level of Care Code 33697 IN/OBS CONSULT LVL 2,35M
[2023-07-08] MEDS ORDERED: oxyCODONE HCL IR 5 MG TAB (IMMEDIATE RELEASE) PO PRN (22:01)
--- NOTE | 2023-07-08 22:02 | Critical Care Consultation ---
Date of Consultation July 08, 2023 Assessment & Plan (1) NSTEMI (non-ST elevated myocardial infarction): (2) Dyslipidemia: (3) Tobacco use: (4) Hypertension: Plan 1. NSTEMI, acute coronary syndrome 2. Hypertension 3. Hyperlipidemia 4. Hyperglycemia 5. 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 if his symptoms were to become refractory or in the setting of hemodynamic compromise EKG for any rhythm change Heparin infusion Nitroglycerin infusion titrated to pain Pulmonary hygiene No acute concerns CT Chest revealed multiple pulmonary nodules which will need to be followed up as OP Tobacco cessation SpO2 > 92 Diet: NPO SUP: N/A Bowel regimen: PRN ISS for BG 140-180 per SCCM guidelines HgA1c pending TSH WNL No concern for active infection or indication for antibiotics at this juncture Trend fever curve Unknown baseline Cr, currently 0.99 Replete electrolytes as indicated I/O Q4H, no indication for infante catheter DVT PPX: Therapeutic heparin in place, SCDs PIV x2 while in ICU Disposition: ICU Thank you for allowing us to participate in this patient's care. We will continue to follow with you and assist in management. Will be D/W Dr. Salgado. Supervising Physician Co-Signing Physician Notes Patient seen and examined MR gold Discussed with bedside critical care nurse and critical care WILLIAM. Agree with assessment plan as noted. Please refer to my progress note from 01/07/2024 for additional details History of Present Illness Reason for Consultation: NSTEMI Requesting Physician: DO Christiano Attending Physician: Shayne Salgado MD History of Present Illness Mr. Eliz Mcneil is a 52YO M with a history of hypertension, hyperlipidemia, tobacco use disorder (< 1/2PPD), excessive caffeine intake who presented to [facility] ED on 07/08/2023 due to acute onset of chest pain. 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 He took 2 ASA pre-hospital. His took him to the ED where he was found to be hypertensive to 190mmHg systolic. CTA was negative for dissection. EKG showed ischemic changes in the form of ST-depression in septal and anterior leads. Work-up was remarkable for troponin 90 which increased to 107,000, leukocytosis. He received 10mg IV Labetalol, 5mg IV Lopressor, and 4mg Morphine with some improvement in pain. Admitted to Hospitalist service for continuation of care. Given elevated troponin and persistent symptoms, Cardiology was consulted who recommended emergent cardiac catheterization. Patient declined this, thus loaded with Brilinta, started on heparin infusion, and transitioned from nitro paste to nitroglycerin infusion. TTE showed focal WMA about apex. Transferred to ICU for continuation of care. Seen in ICU 109. AAOx3. Non-toxic appearing. Hemodynamically stable. Nitroglycerin at 10mcg/min. Patient admits to intermittent chest pain/pressure over the past few years, most notably "when I'm angry or my blood pressure is high". He states the symptoms go away once he's calmed down, but today's sympt oms are different. Denies current complaints including chest pain, shortness of breath, indigestion, arm numbness, nausea, headache, visual changes. POCUS performed which showed no change in WMA of apex when compared to TTE earlier today. R heart normal size and gross systolic function. Allergies Allergy/AdvReac Type Severity Reaction Status Date / Time No Known Allergies Allergy Unverified 07/08/23 14:38 Home Medications Medication Instructions Recorded Confirmed Type No Known Home Medications 07/08/23 07/08/23 History Patient History Medical History Dyslipidemia Tobacco use Family History Father Dyslipidemia Cancer Other Diabetes Social History Smoking Status: Current every day smoker Tobacco Type: Cigarettes Cigarettes Per Day: 2-3; Second Hand Exposure: No; Do You Dip or Chew Tobacco: No; Tobacco Cessation Education Requested by Patient: No Hx Alcohol Use: Yes Alcohol type: beer Hx Substance Use: No Preferred Language: Korean Communication Ability: Effective 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 Beliefs That Will Affect Care: None Current Living Situation: Spouse and Family Other Information That Helps Us Care for You: No Feels Safe at Home: Yes Safety Concerns: Feels Safe At This Time Assistive Devices: Glasses Review of Systems Review of Systems: All systems reviewed & are unremarkable except as noted in Subjective Physical Exam Constitutional: WD/WN, vitals as above Eyes: PERRL, conjunctivae normal, anicteric sclerae ENMT: external ear and nose normal, oropharynx normal Neck: trachea midline, no thyromegaly Respiratory: normal respiratory effort, lungs clear to auscultation Cardiovascular: RRR, no murmur, no edema Gastrointestinal (Abdomen): normal bowel sounds, soft, nontender, no hepatosplenomegaly Musculoskeletal: no cyanosis or clubbing, extremities motor strength 5/5 Skin: no rashes, warm and dry Neurologic: PERRL, EOMI, accommodation nl, no face palsy, no dysarthria Results & Data Results & Data Vital Signs (Past 12 Hours) Vital Signs Temp Pulse Pulse Resp BP BP Pulse Ox 07/08/23 20:44 88 145/83 H 07/08/23 16:40 36.9 C 91 H 18 166/104 H 97 07/08/23 15:17 07/08/23 15:00 160/121 H 07/08/23 15:00 86 22 98 07/08/23 15:00 88 160/121 H 07/08/23 14:58 89 21 98 07/08/23 14:58 166/115 H 07/08/23 14:58 91 H 166/115 H 07/08/23 14:40 96 H 22 100 07/08/23 14:40 178/105 H 07/08/23 14:39 93 H 178/105 H 07/08/23 14:30 176/117 H 07/08/23 14:30 84 15 100 07/08/23 14:30 85 13 176/117 H 100 07/08/23 14:27 100 07/08/23 14:26 82 07/08/23 14:14 95 H 22 99 07/08/23 13:26 36.7 C 98 H 20 190/121 H 99 O2 Del Method 07/08/23 20:44 07/08/23 16:40 Room Air 07/08/23 15:17 Room Air 07/08/23 15:00 07/08/23 15:00 07/08/23 15:00 07/08/23 14:58 07/08/23 14:58 07/08/23 14:58 07/08/23 14:40 07/08/23 14:40 07/08/23 14:39 07/08/23 14:30 07/08/23 14:30 07/08/23 14:30 07/08/23 14:27 Room Air 07/08/23 14:26 07/08/23 14:14 Room Air 07/08/23 13:26 Room Air Laboratory Results Reviewed Diagnostic Findings Reviewed Medications Administered See NENA Coding Level of Care Code 15930 IN/OBS CONSULT LVL 2,35M Diagnoses NSTEMI (non-ST elevated myocardial infarction) I21.4 Dyslipidemia E78.5 Tobacco use Z72.0 Hypertension I10
[2023-07-08] MEDS ORDERED: PHARMACY GLYCEMIC MGMT CONSULT PRN (22:35)
[2023-07-08 23:55] LABS: ANTI-Xa, UFH(UnfractionatedHep 0.75 IU/ml (0.3-0.7)
[2023-07-09] MEDS: INSULIN ASPART PER UNIT CHARGE SC SCH ×5 (02:45→21:02)
[2023-07-09 05:44] LABS: Hematocrit (blood only) 40.6 % (42.0-52.0); Hemoglobin 14.1 g/dl (14.0-18.0); Mean Corpuscular Hgb Conc 34.7 g/dL (32.0-36.0); Mean Corpuscular Volume 83.4 fL (80.0-100.0); Mean Platelet Volume 9.4 fL (9.4-12.4); Platelet Count 259 K/uL (130-400); RDW Coefficient of Variation 13.2 % (11.5-14.5); Red Blood Count 4.87 M/uL (4.70-6.10); White Blood Count 15.08 K/ul (4.8-10.8)
[2023-07-09 05:57] LABS: BUN Creatinine Ratio 13.2 (10-20); Chol HDL Ratio 6.3 (0-5); Creatinine Clr Calc Pharmacy 89.2 ml/min; Est GFR (African American) 91.8 ml/min; Est GFR (Non-African American) 79.2 ml/min; Magnesium 2.1 mg/dl (1.7-2.4); Phosphorus 3.1 mg/dl (2.5-4.9); Potassium 3.7 mmol/L (3.5-5.1)
[2023-07-09 06:03] LABS: ANTI-Xa, UFH(UnfractionatedHep 0.63 IU/ml (0.3-0.7)
[2023-07-09] MEDS ORDERED: LACTATED RINGER'S 250 ML IV ONE (06:07)
[2023-07-09 06:24] LABS: Troponin I High Sensitivity 107574.3 pg/ml (0-20)
[2023-07-09] MEDS ORDERED: INSULIN ASPART PER UNIT CHARGE SC SCH (07:30)
--- NOTE | 2023-07-09 07:46 | Critical Care Progress Note ---
Date of Service July 09, 2023 Assessment & Plan (1) NSTEMI (non-ST elevated myocardial infarction): (2) Dyslipidemia: (3) Tobacco use: (4) Hypertension: Plan Impression: 52-year-old male with non-ST elevation myocardial infarction who declined cardiac cath. He was placed on antiplatelet agents and heparin as well as nitro and was rendered pain-free. Nitro has been weaned off. Recommendations: 1. Non-ST elevation myocardial infarction: Patient's troponin peaked at about 200,000 and is now downtrending. Echo showed findings of wall motion abnormalities concerning for LAD territory ischemia. He is currently pain-free and blood pressure is controlled. Advised the patient that standard of care would be to pursue evaluation of coronary anatomy. He cannot be sent home on heparin and is at risk for development of future events which could potentially be fatal. He expressed understanding and states he wants to think about it with his . He will contact us if he elects to pursue coronary angiography. Will keep him n.p.o. until he makes a decision. For now continue with aspirin and Brilinta as well as heparin. Continue metoprolol for now. 2. Pulmonary nodules: No prior imaging to document stability. Recommend follow-up noncontrast CT scan in 3 to 6 months. Additional imaging will be dictated based on behavior those nodules. 3. Questionable COPD/tobacco history: Smoking cessation recommended. Recommend outpatient PFTs. I offered the patient a trial of inhaler but he declines at this point in time. 4. Hyperlipidemia: Continue atorvastatin 5. Hypertension: Now off nitro. Continue metoprolol. EF is preserved so would hold off on FITO inhibitor for now. Patient can likely be transferred out of the intensive care unit unless he elects to pursue cardiac catheterization in which case disposition would depend on findings of the cath. Above recommendations and plan were extensively discussed with the patient as well as with his at bedside. Questions were answered to the best my ability. They expressed understanding and will get back to us with his ultimate decision Admission and Anticipated Discharge Date Admission Date: July 08, 2023 Subjective Patient seen and examined. EMR reviewed. Discussed with critical care WILLIAM from overnight as well as with bedside nurse and on multidisciplinary rounds. He remains undecided about pursuing any additional intervention at this point in time Patient is awake alert and conversant. He remains on heparin. Nitro has been weaned off. He is chest pain-free. He denies any shortness of breath. No nausea or vomiting. No dizziness or lightheadedness. No lower extremity edema. He does endorse tobacco use of a few cigarettes a day. He likely has about a 73-39-nnrp-year history. He is never been diagnosed with COPD. Review of Systems Review of Systems: All systems reviewed & are unremarkable except as noted in Subjective Physical Exam Constitutional: WD/WN, vitals as above Neck: trachea midline, no thyromegaly Respiratory: no respiratory distress, no labored breathing, no cough and not tachypneic Auscultation: + wheezes; no crackles Cardiovascular: RRR, no murmur, no edema Gastrointestinal (Abdomen): normal bowel sounds, soft, nontender, no hepatosplenomegaly Musculoskeletal: Extremities: extremities normal to inspection Skin: no rashes, warm and dry Neurologic: Nonfocal exam Lymphatic: no cervical lymphadenopathy Results & Data Results & Data Vital Signs (Past 12 Hours) Vital Signs Temp Pulse Pulse Resp BP BP Pulse Ox 07/09/23 07:00 70 20 104/81 96 07/09/23 07:00 37.1 C 07/09/23 00:00 79 07/08/23 22:00 111/86 07/08/23 22:00 86 17 94 07/08/23 21:30 137/78 07/08/23 21:30 79 19 96 07/08/23 21:07 146/88 H 07/08/23 21:07 88 26 H 97 07/08/23 21:00 96 H 21 07/08/23 20:44 85 15 97 07/08/23 20:44 145/83 H 07/08/23 20:44 88 145/83 H 07/08/23 20:30 85 19 95 07/08/23 20:30 141/81 H 07/08/23 20:00 84 07/08/23 20:00 82 22 96 07/08/23 20:00 135/83 07/08/23 19:53 137/95 07/08/23 19:53 83 17 97 07/08/23 19:46 89 96 O2 Del Method 07/09/23 07:00 Room Air 07/09/23 07:00 07/09/23 00:00 07/08/23 22:00 07/08/23 22:00 07/08/23 21:30 07/08/23 21:30 07/08/23 21:07 07/08/23 21:07 07/08/23 21:00 07/08/23 20:44 07/08/23 20:44 07/08/23 20:44 07/08/23 20:30 07/08/23 20:30 07/08/23 20:00 07/08/23 20:00 07/08/23 20:00 07/08/23 19:53 07/08/23 19:53 07/08/23 19:46 Critical Care Results & Data Vital Signs (Past 12 Hours) Vital Signs Temp Pulse Pulse Resp BP BP Pulse Ox 07/09/23 07:00 70 20 104/81 96 07/09/23 07:00 37.1 C 07/09/23 00:00 79 07/08/23 22:00 111/86 07/08/23 22:00 86 17 94 07/08/23 21:30 137/78 07/08/23 21:30 79 19 96 07/08/23 21:07 146/88 H 07/08/23 21:07 88 26 H 97 07/08/23 21:00 96 H 21 07/08/23 20:44 85 15 97 07/08/23 20:44 145/83 H 07/08/23 20:44 88 145/83 H 07/08/23 20:30 85 19 95 07/08/23 20:30 141/81 H 07/08/23 20:00 84 07/08/23 20:00 82 22 96 07/08/23 20:00 135/83 07/08/23 19:53 137/95 07/08/23 19:53 83 17 97 07/08/23 19:46 89 96 O2 Del Method 07/09/23 07:00 Room Air 07/09/23 07:00 07/09/23 00:00 07/08/23 22:00 07/08/23 22:00 07/08/23 21:30 07/08/23 21:30 07/08/23 21:07 07/08/23 21:07 07/08/23 21:00 07/08/23 20:44 07/08/23 20:44 07/08/23 20:44 07/08/23 20:30 07/08/23 20:30 07/08/23 20:00 07/08/23 20:00 07/08/23 20:00 07/08/23 19:53 07/08/23 19:53 07/08/23 19:46 Lab & Micro Results (Past 24 Hours) RBC 4.87 M/uL (4.70-6.10) 07/09/23 WBC 15.08 K/ul (4.8-10.8) H 07/09/23 Hgb 14.1 g/dl (14.0-18.0) 07/09/23 Hct 40.6 % (42.0-52.0) L 07/09/23 MCV 83.4 fL (80.0-100.0) 07/09/23 MCH 29.0 pg (25.0-34.0) 07/09/23 MCHC 34.7 g/dL (32.0-36.0) 07/09/23 RDW Standard Deviation 40.0 fL (36.4-46.3) 07/09/23 RDW Coefficient of Variation 13.2 % (11.5-14.5) 07/09/23 Plt Count 259 K/uL (130-400) 07/09/23 MPV 9.4 fL (9.4-12.4) 07/09/23 Neutrophils (%) (Auto) 73.1 % 07/08/23 Lymphocytes (%) (Auto) 20.2 % 07/08/23 Monocytes # (Auto) 0.78 K/uL (0.11-0.59) H 07/08/23 Eosinophils # (Auto) 0.06 K/uL (0.00-0.50) 07/08/23 Immature Granulocyte % (Auto) 0.7 % 07/08/23 Neutrophils # (Auto) 11.08 K/uL (1.40-6.50) H 07/08/23 Lymphocytes # (Auto) 3.06 K/uL (1.20-3.40) 07/08/23 Monocytes # (Auto) 0.78 K/uL (0.11-0.59) H 07/08/23 Eosinophils # (Auto) 0.06 K/uL (0.00-0.50) 07/08/23 Basophils # (Auto) 0.07 K/uL (0.00-0.20) 07/08/23 Immature Granulocyte # (Auto) 0.10 K/uL (0.01-0.20) 4 Na 138 mmol/L (136-145) 07/09/23 K 3.7 mmol/L (3.5-5.1) 07/09/23 Cl 105 mmol/L (98-107) 07/09/23 CO2 24 mmol/L (21-32) 07/09/23 Anion Gap 9 (3-11) 07/09/23 BUN 14 mg/dl (6-23) 07/09/23 Creatinine 1.06 mg/dl (0.6-1.4) 07/09/23 Estimated GFR ( Amer) 91.8 ml/min 07/09/23 Estimated GFR (Non-Af Amer) 79.2 ml/min 07/09/23 BUN/Creatinine Ratio 13.2 (10-20) 07/09/23 Glu 129 mg/dl (70-99(Fasting)) H 07/09/23 Ca 9.0 mg/dl (8.6-10.3) 07/09/23 Phosphorus Level 3.1 mg/dl (2.5-4.9) 07/09/23 Total Bilirubin 0.7 mg/dl (0.2-1.0) 07/08/23 AST 16 U/L (13-39) 07/08/23 ALT 24 U/L (7-52) 07/08/23 Alkaline Phosphatase 57 U/L (34-104) 07/08/23 TP 8.2 gm/dl (6.0-8.3) 07/08/23 Albumin 4.9 gm/dl (3.4-5.0) 07/08/23 Globulin 3.3 gm/dl (2.5-4.0) 07/08/23 Albumin/Globulin Ratio 1.5 (0.9-2) 07/08/23 Mg 2.1 mg/dl (1.7-2.4) 07/09/23 04:44 Calcium Level 9.0 mg/dl (8.6-10.3) 07/09/23 04:44 Prothromb Time International Ratio 0.9 (0.9-1.1) 07/08/23 13:5 8 Diagnostic Findings (Past 24 Hours) Chest CTA 07/08/23 13:29 CHEST CTA for AORTIC DISSECTION CT DOSE: 1240.68 mGy.cm HISTORY: Chest pain into back, hypertension, hand tingling TECHNIQUE: Multiaxial CT images of the chest were performed both before and after the intravenous administration of contrast to evaluate the aorta. 3D/MIP images were also obtained. Sagittal and coronal reformations were also reviewed. A dose lowering technique was utilized adhering to the principles of ALARA. COMPARISON STUDY: None. FINDINGS: Noncontrast imaging through the chest shows no evidence for an intramural hematoma within the thoracic aorta. Normal caliber thoracic aorta with no evidence for a dissection. The central pulmonary arteries are patent. The heart is normal in size. No pleural or pericardial effusions. The thyroid gland enhances normally. No mediastinal or hilar lymphadenopathy. Normal esophagus. Limited views the upper abdomen demonstrate a normal spleen and adrenal glands. Hepatic steatosis. No acute fractures. No pneumothorax. A 4 mm nodule within the lingula on image 186. Small bibasilar linear densities favor subsegmental atelectasis are scarring. A 4 mm nodule within the left lower lobe on image 190 and a 4 mm nodule within the left lower lobe on image 186. A 7 mm groundglass nodule right upper lobe on image 152. A 3 mm right middle lobe nodule on image 179. No focal lung consolidations to suggest a pneumonia. No evidence for pulmonary edema. IMPRESSION: 1. No evidence for an aortic dissection. 2. Hepatic steatosis. 3. A few scattered subcentimeter pulmonary nodules as described above. Please refer to the chart below for recommended follow-up. Please refer to below summary of Fleischner criteria recommendations for follow- up of incidental CT nodules (Fernando Man, Guidelines for management of small pulmonary nodules detected on CT scans: A statement from the Fleischner Society, Radiology 237: [phone].) SOLID NODULES Solitary nodule size: <6 mm * Low risk patients: no follow-up needed * high risk patients: optional CT at 12 months Solitary nodule size: 6-8 mm * Low risk patients: follow-up at 6-12 months, then consider further follow-up at 18-24 months * high risk patients: initial follow-up CT at 6-12 months and then at 18-24 months if no change Solitary nodule size: >8 mm * either low or high risk patients - consider follow-up CT at 3 months, and/or CT-PET, and/or biopsy Multiple nodules size: <6 mm * Low risk patients: no routine follow-up * high risk patients: optional CT at 12 months Multiple nodules size: 6-8 mm * Low risk patients: follow-up at 3-6 months, then consider further follow-up at 18-24 months * high risk patients: follow-up at 3-6 months, then at 18-24 months if no change Multiple nodules size: >8 mm * Low risk patients: follow-up at 3-6 months, then consider further follow-up at 18-24 months * high risk patients: follow-up at 3-6 months, then at 18-24 months if no change Note: newly detected indeterminate nodule in persons 35 years of age or older. * Low risk patients: minimal or absent history of smoking and/or other known risk factors * high risk patients: history of smoking or of other known risk factors (e.g. first degree relative with lung cancer, or exposure to asbestos, radon, uranium) * if a nodule up to 8 mm is partly solid or is ground glass further follow-up is required after 24 months to exclude possible slow growing adenocarcinoma (MICHAEL) SUBSOLID NODULES Solitary pure ground-glass nodule * nodule size <6 mm - no CT follow-up required * nodule size >=6 mm - follow-up CT at 6-12 months, then every 2 years until 5 years Solitary part-solid nodule * nodule size <6 mm - no CT follow-up required * nodule size >=6 mm - follow-up CT at 3-6 months. If unchanged, and solid component remains <6 mm, then annual follow-up for 5 years Multiple subsolid nodules * nodule size <6 mm - follow-up CT at 3-6 months, consider further follow-up at 2 and 4 years if stable * nodule size >=6 mm - follow-up CT at 3-6 months, subsequent management based on the most suspicious nodule(s) ACT 112: Positive. There are findings on this exam that require communication between the performing entity and the patient following Patient Test Result Information Act ([place] Act 112) guidelines. Electronically signed by: Samir Payton M.D. 07/08/2023 2:32 PM I & O Totals 24 Hours 01/06/1907/09/23 07/10/23 06:59 06:59 06:59 Intake Total 727.366 / 727.366 0 / 0 Output Total 1200 / 1200 Balance -472.634 / -472.634 0 / 0 Cumulative 07/08/23 13:13 thru 07/09/23 07:00 Intake Total 727.366 Output Total 1200 Balance -472.634 RT Ventilator Mngmt (Last Documented) Ventilator Ordered Settings Respiratory Rate 20 07/09/23 07:00 Ventilator - PT Measurements Respiratory Rate 20 Coding Level of Care Code 10525 SUB INP/OBS CARE 3/50MIN Diagnoses NSTEMI (non-ST elevated myocardial infarction) I21.4 Dyslipidemia E78.5 Tobacco use Z72.0 Hypertension I10
[2023-07-09] MEDS ORDERED: niCARdipine HCL INJ 2.5 MG/ML 10 ML AMP ONE (08:20)
[2023-07-09] MEDS ORDERED: HEPARIN (PORCINE) 1000 UNIT/ML 10 ML (CATH LAB USE ONLY) ONE (08:20)
[2023-07-09] MEDS ORDERED: MIDAZOLAM HCL 1 MG/ML 2ML VIAL ONE (08:20)
[2023-07-09] MEDS ORDERED: NITROGLYCERIN/D5W 100MCG/ML 20ML SYR ONE (08:21)
[2023-07-09] MEDS ORDERED: fentaNYL citrate PF 100 MCG/2 ML VIAL ONE (08:21)
[2023-07-09] MEDS ORDERED: ATORVASTATIN 40 MG TAB PO SCH (09:00)
[2023-07-09] MEDS ORDERED: TICAGRELOR 90 MG TAB ONE (09:12)
[2023-07-09 09:35] LABS: ALC (manual) 5.88 K/uL (1.2-3.4); ANC (manual) 8.29 K/uL (1.4-6.5); Lymphocytes # (manual) 3.62 K/uL (1.2-3.4); Lymphocytes % (manual) 24 %; Monocytes % (manual) 6 %; Neutrophils # (manual) 8.29 K/uL (1.40-6.50); Neutrophils % (manual) 55 %; RBC Morphology Unremarkable; Reactive Lymphocytes # (manual) 2.26 K/uL; Reactive Lymphocytes % (manual) 15 %
--- NOTE | 2023-07-09 09:40 | Pre Anesthesia Assessment ---
Date of Service July 09, 2023 Pre Sedation Assessment Vital Signs Temp Pulse Pulse Resp BP BP Pulse Ox 07/09/23 07:00 70 20 104/81 96 07/09/23 07:00 37.1 C 07/09/23 00:00 79 07/08/23 22:00 111/86 07/08/23 22:00 86 17 94 07/08/23 21:30 137/78 07/08/23 21:30 79 19 96 07/08/23 21:07 146/88 H 07/08/23 21:07 88 26 H 97 07/08/23 21:00 96 H 21 07/08/23 20:44 85 15 97 07/08/23 20:44 145/83 H 07/08/23 20:44 88 145/83 H 07/08/23 20:30 85 19 95 07/08/23 20:30 141/81 H 07/08/23 20:00 84 07/08/23 20:00 82 22 96 07/08/23 20:00 135/83 07/08/23 19:53 137/95 07/08/23 19:53 83 17 97 07/08/23 19:46 89 96 07/08/23 19:00 83 7 L 07/08/23 16:40 36.9 C 91 H 18 166/104 H 97 07/08/23 15:17 07/08/23 15:00 160/121 H 07/08/23 15:00 86 22 98 07/08/23 15:00 88 160/121 H 07/08/23 14:58 89 21 98 07/08/23 14:58 166/115 H 07/08/23 14:58 91 H 166/115 H 07/08/23 14:40 96 H 22 100 07/08/23 14:40 178/105 H 07/08/23 14:39 93 H 178/105 H 07/08/23 14:30 176/117 H 07/08/23 14:30 84 15 100 07/08/23 14:30 85 13 176/117 H 100 07/08/23 14:27 100 07/08/23 14:26 82 07/08/23 14:14 95 H 22 99 07/08/23 13:26 36.7 C 98 H 20 190/121 H 99 O2 Del Method 07/09/23 07:00 Room Air 01/13/24 07:00 07/09/23 00:00 07/08/23 22:00 07/08/23 22:00 07/08/23 21:30 07/08/23 21:30 07/08/23 21:07 07/08/23 21:07 07/08/23 21:00 07/08/23 20:44 07/08/23 20:44 07/08/23 20:44 07/08/23 20:30 07/08/23 20:30 07/08/23 20:00 07/08/23 20:00 07/08/23 20:00 07/08/23 19:53 07/08/23 19:53 07/08/23 19:46 07/08/23 19:00 07/08/23 16:40 Room Air 07/08/23 15:17 Room Air 07/08/23 15:00 07/08/23 15:00 07/08/23 15:00 07/08/23 14:58 07/08/23 14:58 07/08/23 14:58 07/08/23 14:40 07/08/23 14:40 07/08/23 14:39 07/08/23 14:30 07/08/23 14:30 07/08/23 14:30 07/08/23 14:27 Room Air 07/08/23 14:26 07/08/23 14:14 Room Air 07/08/23 13:26 Room Air Cardiovascular RRR, no murmur, no edema Respiratory normal respiratory effort, lungs clear to auscultation Pre-Sedation Airway Assessment Smoking Status: Current every day smoker MALLAMPATI II ASA 2 Notes The planned sedation has been discussed with the patient. Informed Consent was obtained. I have identified the patient, determined the appropriateness of sedation and have assessed the patient immediately prior to the procedure. All medicine(s) and interventions are by my order.
--- NOTE | 2023-07-09 09:43 | Post Anesthesia Assessment ---
Date of Service July 09, 2023 Post Sedation Assessment Vital Signs Temp Pulse Pulse Resp BP BP Pulse Ox 07/09/23 07:00 70 20 104/81 96 07/09/23 07:00 37.1 C 07/09/23 00:00 79 07/08/23 22:00 111/86 07/08/23 22:00 86 17 94 07/08/23 21:30 137/78 07/08/23 21:30 79 19 96 07/08/23 21:07 146/88 H 07/08/23 21:07 88 26 H 97 07/08/23 21:00 96 H 21 07/08/23 20:44 85 15 97 07/08/23 20:44 145/83 H 07/08/23 20:44 88 145/83 H 07/08/23 20:30 85 19 95 07/08/23 20:30 141/81 H 07/08/23 20:00 84 07/08/23 20:00 82 22 96 07/08/23 20:00 135/83 07/08/23 19:53 137/95 07/08/23 19:53 83 17 97 07/08/23 19:46 89 96 07/08/23 19:00 83 7 L 07/08/23 16:40 36.9 C 91 H 18 166/104 H 97 07/08/23 15:17 07/08/23 15:00 160/121 H 07/08/23 15:00 86 22 98 07/08/23 15:00 88 160/121 H 07/08/23 14:58 89 21 98 07/08/23 14:58 166/115 H 07/08/23 14:58 91 H 166/115 H 07/08/23 14:40 96 H 22 100 07/08/23 14:40 178/105 H 07/08/23 14:39 93 H 178/105 H 07/08/23 14:30 176/117 H 07/08/23 14:30 84 15 100 07/08/23 14:30 85 13 176/117 H 100 07/08/23 14:27 100 07/08/23 14:26 82 07/08/23 14:14 95 H 22 99 07/08/23 13:26 36.7 C 98 H 20 190/121 H 99 O2 Del Method 07/09/23 07:00 Room Air 01/13/24 07:00 07/09/23 00:00 07/08/23 22:00 07/08/23 22:00 07/08/23 21:30 07/08/23 21:30 07/08/23 21:07 07/08/23 21:07 07/08/23 21:00 07/08/23 20:44 07/08/23 20:44 07/08/23 20:44 07/08/23 20:30 07/08/23 20:30 07/08/23 20:00 07/08/23 20:00 07/08/23 20:00 07/08/23 19:53 07/08/23 19:53 07/08/23 19:46 07/08/23 19:00 07/08/23 16:40 Room Air 07/08/23 15:17 Room Air 07/08/23 15:00 07/08/23 15:00 07/08/23 15:00 07/08/23 14:58 07/08/23 14:58 07/08/23 14:58 07/08/23 14:40 07/08/23 14:40 07/08/23 14:39 07/08/23 14:30 07/08/23 14:30 07/08/23 14:30 07/08/23 14:27 Room Air 07/08/23 14:26 07/08/23 14:14 Room Air 07/08/23 13:26 Room Air Recovery Score Activity: Moves 4 extremities Respiration: Deep Breath/Cough Circulation: +/-20% PreAnes Value Consciousness: Fully Awake Oxygen Saturation: > 92% On Room Air Discharge Sedation Level of Care: Fast Track Phase II Post Sedation Plan On clinical assessment, the patient appears to have tolerated the sedation without complications. Patient is recovering as anticipated. Patient will continue to be monitored by nursing and may be discharged when sedation discharge criteria are met per below protocol. Upon Completions of procedure up to 15 minutes continue every 5 minute vital signs and the P.A.R. score; then discharge to a Phase I or Fast Track to Phase I I per the following guidelines: * Discharge Patient to appropriate Phase II area if PAR is 8 or greater or return to pre- procedure baseline. The post - procedure orders will be as directed. * If PAR score is less than 8 or not return to pre-procedure baseline then patient will follow Phase I monitoring till PAR is reached for Phase II. The Phase I may be done in procedure room or may call to secure a Phase I area. * If naloxone or flumazenil are used for reversal, hold in Phase I for continued monitoring from when last reversal dose was given for a minimum of 60 minutes or longer pending the nurse and/or physician discretion of patient condition before discharge to Phase II. Please call the Sedation Physician to re-evaluate and complete post-note for discharge to Phase II area. Do NOT discharge from procedure sedation or Phase 1 until post- sedation evaluation note is complete by procedure /sedation MD Sedation Discharge Instructions to be given to the patient at discharge to home. [facility] Procedure Codes (Charges) Indication for Procedure Indication for procedure: NSTEMI Sedation/Anesthesia Procedure 1: Sedation/Anesthesia: 30172 Mod Sedation by the same physician;Init15 Min Child Age 5 & Up (INITIAL 15 MIN, START 0839) Total Sedation Time (minutes): 38 Procedure 2: Sedation/Anesthesia: 18308 Mod Sedation by the same physician; Ea [id number] Minutes (ADDITIONAL 23 MIN, END TIME 0917) Total Sedation Time (minutes): 38
[2023-07-09] MEDS: METOPROLOL TARTRATE 25 MG TAB PO SCH ×2 (09:48→21:00)
[2023-07-09] MEDS: ASPIRIN 81 MG ECTAB PO SCH (09:48)
[2023-07-09] MEDS ORDERED: Nursing to Pharmacy Communication SCH (10:00)
[2023-07-09] MEDS ORDERED: LOSARTAN POTASSIUM 25 MG TAB PO SCH (11:15)
--- NOTE | 2023-07-09 11:20 | Cardiology Progress Note ---
Date of Service July 09, 2023 Assessment & Plan (1) NSTEMI (non-ST elevated myocardial infarction): (2) Tobacco use: (3) Dyslipidemia: Plan 52-year-old male present to the hospital with NSTEMI 07/08/2023. Declined cardiac catheterization with ongoing chest comfort overnight. Agreed to cardiac catheterization this morning, however, high-sensitivity troponin peaking at nearly 200,000. Successful implantation of LAD and left circumflex stents. Reviewed importance of continuing dual antiplatelet therapy uninterrupted for a minimum of 12 months post myocardial infarction. Add losartan 25 mg daily. Continue metoprolol, aspirin, and high intensity statin therapy. Patient will require at least additional 48 hours of observation due to delay in percutaneous intervention in the setting of acute myocardial infarction. Plan repeat limited echocardiogram in 24 to 48 hours. Admission and Anticipated Discharge Date Admission Date: July 08, 2023 Subjective 52-year-old male seen and examined at the bedside in the intensive care unit. Agreed to cardiac catheterization this morning. Coronary angiography demonstrating two-vessel disease with severe LAD and circumflex stenosis. Two- vessel PCI performed without complication. Currently denies chest discomfort. Telemetry reveals sinus rhythm. High-sensitivity troponin peaking at nearly 200,000. Has questions regarding intermittent elevated blood pressure readings at home. present at bedside and well. She offers no additional concerns/complaints. Review of Systems Review of Systems: All systems reviewed & are unremarkable except as noted in Subjective Physical Exam Constitutional: well nourished; no acute distress Respiratory: no respiratory distress, no labored breathing and no retractions Cardiovascular: Rate/Rhythm: regular rate and regular rhythm Heart Sounds: normal S1 and normal S2; no murmur Vessels: radial pulses present; no JVD and no carotid bruit Extremities: no edema Neurologic: CN's II-XI intact bilaterally and moves all extremities; no focal motor deficits Results & Data Vital Signs (Past 12 Hours) Vital Signs Temp Pulse Resp BP Pulse Ox O2 Del Method 07/09/23 10:00 79 14 136/86 98 Room Air 07/09/23 09:45 89 18 127/85 95 Room Air 07/09/23 09:35 77 21 127/90 96 Room Air 07/09/23 07:00 70 20 104/81 96 Room Air 07/09/23 07:00 37.1 C 07/09/23 00:00 79 Laboratory Results Cardiac Enzymes 07/08/23 07/08/23 07/08/23 Range/Units 13:58 17:03 22:27 AST 16 (13-39) U/L Troponin I High Sens 90.9 H* 942461.1 H* D 076890.1 H* D (0-20) pg/ml 07/09/23 Range/Units 04:44 AST (13-39) U/L Troponin I High Sens 129044.3 H* D (0-20) pg/ml Coagulation 07/08/23 Range/Units 13:58 PT 10.4 (9.0-12.0) Seconds APTT 24 (21-31) Seconds Lipids 07/09/23 Range/Units 04:44 Triglycerides 148 (0-150) mg/dl Cholesterol 207 H (0-200) mg/dl HDL Cholesterol 33 mg/dl Cholesterol/HDL Ratio 6.3 H (0-5) CBC 07/08/23 07/09/23 Range/Units 13:58 05:05 WBC 15.15 H 15.08 H (4.8-10.8) K/ul RBC 5.29 4.87 (4.70-6.10) M/uL Hgb 15.4 14.1 (14.0-18.0) g/dl Hct 43.8 40.6 L (42.0-52.0) % Plt Count 275 259 (130-400) K/uL Neut # (Auto) 11.08 H (1.40-6.50) K/uL Lymph # (Auto) 3.06 (1.20-3.40) K/uL [place] # (Auto) 0.78 H (0.11-0.59) K/uL Eos # (Auto) 0.06 (0.00-0.50) K/uL Baso # (Auto) 0.07 (0.00-0.20) K/uL Comprehensive Metabolic Panel 07/08/23 07/09/23 Range/Units 13:58 04:44 Sodium 136 138 (136-145) mmol/L Potassium 4.0 3.7 (3.5-5.1) mmol/L Chloride 102 105 (98-107) mmol/L Carbon Dioxide 24 24 (21-32) mmol/L BUN 13 14 (6-23) mg/dl Creatinine 0.99 1.06 (0.6-1.4) mg/dl Glucose 175 H 129 H (70-99(Fasting)) mg/dl Calcium 9.5 9.0 (8.6-10.3) mg/dl AST 16 (13-39) U/L ALT 24 (7-52) U/L Alkaline Phosphatase 57 (34-104) U/L Total Protein 8.2 (6.0-8.3) gm/dl Albumin 4.9 (3.4-5.0) gm/dl Intake and Output 07/08/23 07/09/23 07/09/23 22:59 06:59 14:59 Intake Total 61.383 / 727.366 665.983 / 727.366 36.45 / 36.45 Output Total 600 / 1200 600 / 1200 Balance -538.617 / -472.634 65.983 / -472.634 36.45 / 36.45 Intake: IV 61.383 / 677.366 615.983 / 677.366 36.45 / 36.45 Heparin Sodium/Dextrose 25,000 61.383 / 379.916 318.533 / 379.916 36.45 / 36.45 units In 500 ml @ 1,350 UNITS/ HR 27 mls/hr IV .[id number] [facility] Rx #:[id number] Lactated Ringer's 250 ml @ 999 250 / 250 mls/hr IV .Q16M ONE Rx#: [id number] Nitroglycerin/D5w 100Mcg/ml 250 47.45 / 47.45 0 / 0 ml @ 0 MCG/MIN IV .Q0M [facility] Rx# :[id number] Oral 50 / 50 Output: Urine 600 / 1200 600 / 1200 Other: Other Intake Source sips and chips sip with PO meds Weight 88.3 kg 88.1 kg Weight Measurement Method Built in [facility] Built in [facility]
--- NOTE | 2023-07-09 12:12 | Cardiac Catheterization ---
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 Cardiac Status Clinical evaluation leading to the procedure CAD Presenation: Non STEMI Anginal Classification: CCS IV Heart Failure: No Cardiogenic Shock within 24 Hours: No Cardiac Arrest within 24 Hours: No Imaging Studies Past 6 Months: No Stress Studies Past 6 Months: No STEMI OR Non-STEMI Symptom Onset Date: 07/08/23 Symptom Onset Time: 12:00 Thrombolytics: No Coronary Anatomy Dominant: Right Left Main (% Stenosis): Normal LAD (% Stenosis): Ostial (30%) and Mid (85 to 90%) D1 (% Stenosis): Normal D2 (% Stenosis): Proximal (40%) Circumflex (% Stenosis): Mid (90 to 95%) OM1 (% Stenosis): Normal OM2 (% Stenosis): Normal OM3 (% Stenosis): Normal L PL1 (% Stenosis): Normal RCA (% Stenosis): Proximal (30%) and Mid (20%) R PDA (% Stenosis): Normal R PL1 (% Stenosis): Normal Diagnostic Physicians Name: Buster Ferrara MD, PhD Closure Device Percutaneous Entry Location: Radial Closure Device: Radial Band Recommendations: Medical Therapy and/or Counseling and PCI without planned CABG PCI Indication: PCI for high risk Non-LYNDA Reason For Delay in PCI:: Patient delays in providing consent Lesion Segment Name: Mid LAD Culprit Artery: Yes Stenosis Prior to Rx (%): 85 to 90% Chronic Total Occlusion: No Pre-Procedure SONIA Flow: 2 Previously Treated Lesion: No Lesion Complexity: Non-High/Non-C Lesion Length (mm): 15 Thrombus Present: Yes (Very small) Bifurcation Lesion: Yes Guidewire Across Lesion: Yes Lesion #2 Segment Name: Mid circumflex Culprit Artery: Yes (Possibly) Stenosis Prior to Rx (%): 90 to 95% Chronic Total Occlusion: No Pre-Procedure SONIA Flow: 3 Previously Treated Lesion: No Lesion Complexity: Non-High/Non-C Lesion Length (mm): 15 Thrombus Present: Yes (Possibly small) Bifurcation Lesion: No Guidewire Across Lesion: Yes Intraprocedure Events Significant Disection: No Perforation: No Cardiac Cath Procedure Full Procedure Date July 09, 2023 Pre-Procedure Diagnosis Pre-Procedure Diagnosis: Non STEMI AUC Score AUC Score: 09 Post-Procedure Diagnosis Post-Procedure Diagnosis: Severe CAD and Successful PCI Procedure(s) Performed Procedure(s) Performed: Coronary Angiography and Drug Eluting Stent Water Pumper Buster Ferrara MD, PhD Estimated Blood Loss Estimated Blood Loss: 10 mL Medication(s) Medication(s): Fentanyl, Heparin, Lidocaine 1%, Nicardipine, Nitroglycerin and Versed Summary of Findings Brief description: Patient was brought to the cardiac catheterization suite where he was shaved and prepped in a sterile fashion. Sedated using IV Versed and fentanyl. Soft tissues of the right wrist were anesthetized using 2 mL of 1% Xylocaine. The right radial artery was accessed using a modified Seldinger technique and a 6 [place]ian radial artery glide sheath was placed. Patient was provided anticoagulation with IV heparin and antispasmodics including nicardipine and nitroglycerin. All catheters were advanced and exchanged over a 0.035 J-tip wire. Right coronary angiography was performed in orthogonal views with a 5 Mong[place]ian JR4 diagnostic catheter. Left coronary angiography was performed in orthogonal views with a 6 Mong[place]ian EBU 3.0 guide catheter. We decided to proceed immediately to PCI. ACT was checked intermittently throughout the case and additional heparin provided as needed to maintain therapeutic ACT. Through the guide catheter a BMW universal guidewire was advanced and positioned distally in the LAD. The lesion was predilated using a 2.5 x 12 mm trek balloon at 8 liliana followed by 14 and 16 liliana. PCI with implantation of a 2.75 x 18 mm [place] drug-eluting stent at 12 liliana. Production Control Analyst angiography performed and decided to pull the stent balloon back proximal to the stent and predilated using this balloon up to 16 liliana. A 2.75 x 8 mm John drug-eluting stent was then positioned just proximal to the f irst stent across the residual stenosis with its distal edge just within the proximal portion of the initial stent. This was then deployed at 18 liliana. Stent balloon was advanced to the overlapped segment as well as the proximal to midportion of the first stent where this was postdilated up to 17 liliana. Stent balloon was removed. Production Control Analyst angiography was performed with the guidewire in place. Guidewire was removed and angiography was performed. We next proceeded with PCI of the circumflex. BMW reversal guidewire was pulled back into the guide catheter and then redirected into the circumflex where it was eventually positioned distally. Lesion was predilated using a 2.5 x 12 mm trek balloon up to 12 liliana. Drug-eluting stent implantation with a 2.5 x 18 mm John stent at 16 liliana. Stent balloon removed and household personal assistant angiography performed. Guidewire removed and final angiographic evaluation was performed. The guide catheter was then removed. Radial artery sheath was removed. Hemostasis was obtained using the radial band. Patient remained hemodynamically stable and asymptomatic. He was returned to the recovery area. This ended the case. Coronary angiography findings: RCA-this is large caliber and dominant. Bifurcates distally into a large branching posterolateral and a medium to large PDA. Proximal RCA with less than 30% focal stenosis. Mid vessel has diffuse mild disease of less than 20%. Distally there is no disease. [id number] vessel. Bifurcates into the LAD and circumflex. It has very mild calcification and no significant disease. LAD-this is large caliber and transapical. Has an ostial to proximal lesion of 30%. First major branch is a septal branch and at the same level there is a medium caliber diagonal branch. The mid LAD then has an 85 to 90% stenosis initially with SONIA II flow and a small amount of thrombus. It gives a medium to large caliber second diagonal which has proximal 40% stenosis. The distal LAD is tortuous with scattered luminal irregularities. [id number]-rbkfvvh and nondominant. Proximal segment in the AV groove has mild luminal irregularities. It has a small caliber OM1 a small caliber OM 2 and then an atrial branch. Just after the atrial branch the mid AV groove circumflex has diffuse disease but a focal narrowing of 90 to 95%. There is SONIA-3 flow in the vessel distally but there may be a small thrombus in the lesion making it difficult to know if the LAD or the circumflex is the culprit. There is a small OM 3 and the circumflex terminates as a large branching posterolateral. This vessel has no more than mild luminal irregularities. PCI of LAD-0% residual stenosis post PCI with 2 overlapped drug-eluting stents. SONIA-3 flow post PCI No evidence of dissection or perforation post PCI PCI LCx-0% residual stenosis post PCI. SONIA-3 flow post PCI No evidence of dissection or perforation post PCI Summary: 1. Severe multivessel coronary artery disease involving the LAD and circumflex. 2. Successful PCI with implantation of 2 drug-eluting stents in the LAD and 1 drug-eluting stent in the circumflex. 3. Dual antiplatelet therapy with aspirin 81 mg daily and Brilinta 90 mg p.o. twice daily for 1 to 2 years. 4. Initiate guideline directed medical therapy for secondary prevention of coronary disease to include; low-dose aspirin, beta-lisa, high intensity statin therapy, plus or minus FITO inhibitor/ARB. 5. Given the delay from onset of symptoms to consent for catheterization and subsequent treatment I would recommend the patient remain hospitalized for 48 to 72 hours as he carries increased risk of complication from [place]. Hemodynamics Rest Ao:: 108/81 mmHg Final Ao: 135/87 mmHg LV: Not performed Recommendations Recommendations: Medical Therapy and/or Counseling and PCI without planned CABG Radiation Exposure (mGy) 2627 mGy, fluoroscopy time 13 minutes Contrast (mls) 220 mL Anesthesia 2 mg Versed, 50 mcg fentanyl IV. Start 0839, End 09 Procedural Complication(s) None Disposition ICU I attest to the content of the Intraoperative Record and any orders documented therein. Any exceptions are noted below. [facility] Card Cath Procedure Codes Cardiac Catheterization Procedure 1: Cardiovascular Cath Procedures: 60913 Coronaries Moderate Sedation Procedure 1: Sedation/Anesthesia: 54494 Mod Sedation by the same physician;Init15 Min Child Age 5 & Up (Initial 15 min, start time 0839) Procedure 2: Sedation/Anesthesia: 36930 Mod Sedation by the same physician; Ea [id number] Minutes (Additional 23 min, end time 09) Stenting Procedure 1: Cardiovascular Stent Procedures: 34631 Perc transluminal revascularization of acute sub/total occl, aMI (LAD) Procedure 2: Cardiovascular Stent Procedures: 28297 Ea addl branch of a major coronary artery (LCx) PG Care Time/CCT Total # of Minutes Spent Total Time Spent with Patient: Total time spent is greater than 50% in coordination of care (as documented) at patient's floor/unit and/or counseling patient:
--- NOTE | 2023-07-09 13:40 | Pharmacy Report ---
Pharmacy Glycemic Short Note 2 - Date of Service July 09, 2023 - Glycemic Short BSG Results (Last 24 hours): 07/08/23 07/08/23 07/08/23 13:56 13:58 20:34 Glucose 175 H POC Glucose 148 H POC Glucose (other) 181 H 07/09/23 07/09/23 07/09/23 01:50 04:44 05:44 Glucose 129 H POC Glucose 143 H 145 H POC Glucose (other) 07/09/23 11:15 Glucose POC Glucose 148 H POC Glucose (other) OUTPATIENT ANTIDIABETIC REGIMEN: * No antidiabetic medications * HbA1c pending ASSESSMENT: * 52 yo M admitted on 07/08/23 secondary to NSTEMI. Pharmacy has been consulted to assist with inpatient glycemic management. Unknown if patient is diabetic at this time as we await A1c level. * BSGs last night were 181-148 mg/dL. Patient has been NPO through this morning and is now s/p cardiac catheterization today. A diet will be ordered with lunch today. * Fasting BSG was 145 mg/dL this morning. Will place a scaled Lantus order for this evening for hyperglycemia. Novolog will be continued based on weight/stress of 2. PLAN FOR INPATIENT GLYCEMIC CONTROL: * Hold outpatient oral diabetes medications * Basal insulin * Lantus 0-10 units SC HS per scale (see eMAR for more details) * Bolus insulin * NovoLog per scale ACHS or Q6hrs while NPO * Goal Range: Low 110 mg/dL - High 140 mg/dL * Correction Factor: 25 mg/dL/unit * Nutritional / Prandial insulin per carb ratio of 1 unit per 9 grams CHO consumed
--- NOTE | 2023-07-09 15:27 | Cardiology Consultation ---
Date of Consultation July 09, 2023 Assessment & Plan (1) NSTEMI (non-ST elevated myocardial infarction): Severe multivessel coronary artery disease status post PCI of the LAD and the circumflex. Good angiographic result. Patient will be on dual antiplatelet therapy with aspirin 81 mg daily and Brilinta 90 mg p.o. twice daily for 1 to 2 years. We will get a limited echocardiogram since patient continued to infarct overnight so we can compare EF and wall motion to findings on initial echocardiogram. This may have some impact on the recommendations regarding medical management. This was discussed with Dr. Zuñiga. Strongly recommend the patient participate in cardiac rehab after discharge. I also recommend the patient remain hospitalized for 48 to 72 hours because of potential for mechanical complications of SC. 24 hours in the ICU should be adequate. (2) Hypertension: Blood pressure likely high more often than the patient realizes. Agree with metoprolol and angiotensin receptor lisa. Further titration as an inpatient as well as an outpatient. (3) Dyslipidemia: Patient is considered high risk. High intensity statin therapy has been initiated with a atorvastatin. Target LDL reduction is greater than or equal to 50% of untreated baseline LDL. His LDL was 144 mg/dL on admission. Cardiac prudent low-cholesterol diet is recommended. (4) Coronary artery disease: Patient has mild residual coronary disease. Initiating guideline directed medical therapy for secondary prevention including; low-dose aspirin, high intensity statin therapy, beta-lisa, and angiotensin receptor lisa. If he has any residual anginal symptoms then a long-acting nitrate would be recommended. Patient will continue care with Dr. Farrell as an outpatient. 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 Symptoms improved but not completely resolved and when he spoke with his about this she made him come to the emergency department. He still had mild chest pressure in the emergency department and his EKG demonstrated ischemic ST depressions. He was initially evaluated by Dr. Farrell who recommended cardiac catheterization. The patient was reluctant to have the procedure. I was then asked to see the patient since I would be performing a catheterization. The patient's chest discomfort eventually resolved, his troponin was mildly elevated, and his echocardiogram demonstrated presumably new wall motion abnormalities. I advised the patient that given this constellation of symptoms and findings that an urgent catheterization was recommended. We had a long discussion regarding the risks, benefits, and alternatives. Ultimately, he decided against proceeding with catheterization at that time since he was "feeling better". He did agree to be admitted overnight and initial therapy with IV heparin drip, aspirin, and blood pressure medications was initiated. The patient was convinced that his symptoms were secondary to his elevated blood pressure. He has reportedly had spikes in his blood pressure but states that usually his blood pressure is normal except for when he is under stress. His accompanies him and states that he is very stubborn. He does not take any medications although they have been recommended. Despite initiation of heparin therapy, aspirin, and nitroglycerin he had recurrence of chest pain overnight. In the heparin dosing protocol was increased, nitroglycerin drip was started, he also received Brilinta loading dose of 180 mg, and was transferred to the ICU. The hospitalist and critical care Dr. both saw him and recommended that he go emergently to the cardiac catheterization suite, especially since his troponin was also worsened. However, the patient continued to decline. I was contacted but since he was unwilling to go to the Train Station Agent we tried to adjust his medications further and he eventually became chest pain-free. This morning, I very bluntly told the patient that his troponin was extremely elevated suggesting significant myocardial injury, that he was now at risk for mechanical complication of untreated myocardial infarction, and that there was no role in this setting for outpatient cardiac CT angiography which he had investigated and felt might be a better evaluation of his coronaries because it was noninvasive and he had significant concerns regarding potential complications. Ultimately, he agreed to proceed with cardiac catheterization. Patient underwent diagnostic coronary angiography which revealed severe LAD lesion as well as severe left circumflex lesion. These were treated with 2 overlapped drug-eluting stents in the LAD and a single drug-eluting stent to the circumflex. Patient tells me that lately he has been having "indigestion" in the evenings. His tells me he is very sedentary and does not follow a healthy diet. He has also been noncompliant with medication recommendations. He denies any syncope, near syncope, orthopnea, PND, racing heartbeat, palpitations, or edema. After catheterization he is feeling well and was resting when I revisited him. No other complaints or concerns at this time. Allergies Allergy/AdvReac Type Severity Reaction Status Date / Time No Known Allergies Allergy Unverified 07/08/23 14:38 Home Medications Medication Instructions Recorded Confirmed Type No Known Home Medications 07/08/23 07/08/23 History Patient History Medical History Dyslipidemia Tobacco use Family History Father Dyslipidemia Cancer Other Diabetes Social History Smoking Status: Current every day smoker Tobacco Type: Cigarettes Cigarettes Per Day: 2-3; Second Hand Exposure: No; Do You Dip or Chew Tobacco: No; Tobacco Cessation Education Requested by Patient: No Hx Alcohol Use: Yes Alcohol type: beer Hx Substance Use: No Preferred Language: Kazakh Communication Ability: Effective 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 Sclera are anicteric. ENMT: Oral mucosa is pink moist and intact Neck: No JVD, thyromegaly, or bruits. Respiratory: Clear to auscultation bilaterally. No wheezing, rhonchi, or rales. Cardiovascular: Regular rate and rhythm. S4 gallop. Do not appreciate any rubs or murmurs. Musculoskeletal: no cyanosis or clubbing, extremities motor strength 5/5 Neurologic: Cognition is intact. Speech is fluent. No focal deficits. Ambulates normally. Psychiatric: A+Ox3, euthymic affect Results & Data Vital Signs (Past 12 Hours) Vital Signs Temp Pulse Resp BP Pulse Ox O2 Del Method 07/09/23 12:00 82 20 123/84 94 Room Air 07/09/23 11:30 83 19 104/85 96 Room Air 07/09/23 11:00 75 17 129/81 97 Room Air 07/09/23 11:00 37.0 C 07/09/23 10:45 77 16 130/89 98 Room Air 07/09/23 10:30 70 18 129/90 97 Room Air 07/09/23 10:15 70 22 118/86 98 Room Air 07/09/23 10:00 79 14 136/86 98 Room Air 07/09/23 09:45 89 18 127/85 95 Room Air 07/09/23 09:35 77 21 127/90 96 Room Air 07/09/23 07:00 70 20 104/81 96 Room Air 07/09/23 07:00 37.1 C PG Care Time/CCT Total # of Minutes Spent Total Time Spent with Patient: Total time spent is greater than 50% in coordination of care (as documented) at patient's floor/unit and/or counseling patient: Note: I spent more than 80 minutes in evaluation, counseling, review of records, and updating patient and family throughout my initial evaluation yesterday, ongoing overnight on the phone with the hospital team, and again this morning with his and the patient prior to the catheterization and additionally after the catheterization and PCI. This time is exclusive of the time spent for the procedure and includes time spent in documentation. Coding Level of Care Code 87397 IN/OBS CONSULT LVL 5,80M Diagnoses NSTEMI (non-ST elevated myocardial infarction) I21.4 Hypertension I10 Dyslipidemia E78.5 Coronary artery disease I25.10
[2023-07-09] MEDS: SODIUM CHLORIDE 0.9% 1,000 ML IV SCH (16:45)
--- NOTE | 2023-07-09 17:35 | Hospitalist Progress Note ---
Date of Service July 09, 2023 Assessment & Plan (1) Chest pain: (2) NSTEMI (non-ST elevated myocardial infarction): Plan: per admitting service notes with addendum: Patient is 48-year-old male with PMH tobacco use presented to ER with c/o CP, SOB, diaphoresis today. Toady patient arrived to ER with continued chest pain and back pain. He was hypertensive with BP 190/121 and pulse of 98, R: 20, 99% on RA and was afebrile. Initial concern for dissection and had CTA chest that was negative for aortic dissection. Initial troponin: 90. EKG with sinus rhythm rate 87 with PVC, + ST depression septal, anterior leads. In ER given labetalol 10mg IV, Lopressor 5mg IV, Zofran, morphine 4mg IV. Patient reports continued CP 6/10 on pain scale. Repeat vitals with HR: 88, BP: 160/121. Heparin was ordered however patient taken to biology laboratory assistant prior to administration. Patient has refused cardiac cath at this time. Echo: EF: 55-60%, mild concentric LVH, small sized apical wall motion abnormality with hypokinesis of the segments, Grade I diastolic dysfunction Monitor Vitals Repeat EKG in am Will trend troponin lipid panel in AM. Start atorvastatin Start daily aspirin Start metoprolol tartrate 25mg po BID Nitropaste IV Heparin Morphine prn Cardiology consult, Seen by Dr Farrell, and interventionalist medical editor, Dr Ferrara. Patient has denied cardiac cath. It is reported he may re-consider tomorrow. Will make NPO midnight CBC, BMP in am 07/09 Status post cardiac cath: Severe multivessel coronary artery disease status post PCI of the LAD and the circumflex Stable overall Continue aspirin, Brilinta, losartan, metoprolol, atorvastatin Repeat echo tomorrow (3) Elevated glucose: Plan: Random glucose: 175 A1c in AM Novolog sliding scale per protocol BSG 121-148 A1c pending (4) Abnormal CT scan, chest: (5) Dyslipidemia: Plan: 07/16/21 Lipid panel: Total: 252, LDL: 180, HDL: 41, Triglycerides: 155. TG 148, cholesterol 207, LDL 144, HDL 33 Lipitor 80 mg p.o. daily (6) Tobacco use: Plan: Patient reported to have cut back Smoking cessation encouraged (7) Pulmonary nodules: Plan: CTA Chest: 4 mm nodule, 4 mm nodule within the left lower lobe, 4 mm nodule within the left lower lobe, a 7 mm groundglass nodule right upper lobe, 3 mm right middle lobe nodule Will need follow up with outpatient CT chest DVT Prophylaxis SCDs Admission and Anticipated Discharge Date Admission Date: July 08, 2023 Subjective Follow-up for NSTEMI, etc. Resting in bed, awaiting cardiac cath Comfortable, not in distress No active chest pain, shortness of breath, nausea vomiting, dizziness, palpitation No other new symptoms Review of Systems Review of Systems: all noted and negative except for above Physical Exam Physical Exam: General- oriented x 3, not in distress, speaks in sentences with no effort or accessory muscle use Eyes- anicteric Neck- no JVD Lungs- clear breath sounds bilaterally, no crackles or wheezing Heart- normal rate, regular rhythm; no murmurs Abdomen- normal bowel sounds, nondistended, soft, nontender Extremities- no pretibial edema, no calf tenderness Neuro- alert, oriented x 3; no gross focal neurologic deficits Skin- warm & dry Results & Data Results & Data Vital Signs (Past 12 Hours) Vital Signs Temp Pulse Resp BP Pulse Ox O2 Del Method 07/09/23 16:00 75 22 126/78 95 Room Air 07/09/23 15:00 84 17 132/82 95 Room Air 07/09/23 14:00 83 20 97/77 L 96 Room Air 07/09/23 12:15 84 21 123/84 94 Room Air 07/09/23 12:00 82 20 123/84 94 Room Air 07/09/23 11:30 83 19 104/85 96 Room Air 07/09/23 11:00 75 17 129/81 97 Room Air 07/09/23 11:00 37.0 C 07/09/23 10:45 77 16 130/89 98 Room Air 07/09/23 10:30 70 18 129/90 97 Room Air 07/09/23 10:15 70 22 118/86 98 Room Air 07/09/23 10:00 79 14 136/86 98 Room Air 07/09/23 09:45 89 18 127/85 95 Room Air 07/09/23 09:35 77 21 127/90 96 Room Air 07/09/23 07:00 70 20 104/81 96 Room Air 07/09/23 07:00 37.1 C all noted and reviewed including below (1) Chest pain Chest pain type: unspecified Qualified Code(s): R07.9 - Chest pain, unspecified
[2023-07-09] MEDS: TICAGRELOR 90 MG TAB PO SCH (21:00)
[2023-07-09] MEDS: ATORVASTATIN 40 MG TAB PO SCH (21:01)
[2023-07-09] MEDS: LANTUS PER UNIT CHARGE SC SCH (21:02)
[2023-07-10] MEDS: SODIUM CHLORIDE 0.9% 1,000 ML IV SCH (00:56)
[2023-07-10 05:30] LABS: Basophils # (auto) 0.06 K/uL (0.00-0.20); Basophils % (auto) 0.4 %; Eosinophils # (auto) 0.17 K/uL (0.00-0.50); Eosinophils % (auto) 1.2 %; Hematocrit (blood only) 37.8 % (42.0-52.0); Immature Granulocytes # (auto) 0.06 K/uL (0.01-0.20); Immature Granulocytes % (auto) 0.4 %; Lymphocytes # (auto) 3.91 K/uL (1.20-3.40); Lymphocytes % (auto) 27.4 %; Mean Corpuscular Hemoglobin 28.8 pg (25.0-34.0); Mean Corpuscular Hgb Conc 34.4 g/dL (32.0-36.0); Mean Corpuscular Volume 83.6 fL (80.0-100.0); Mean Platelet Volume 9.7 fL (9.4-12.4); Monocytes # (auto) 1.22 K/uL (0.11-0.59); Monocytes % (auto) 8.5 %; Neutrophils # (auto) 8.87 K/uL (1.40-6.50); Neutrophils % (auto) 62.1 %; Platelet Count 228 K/uL (130-400); RDW Coefficient of Variation 13.2 % (11.5-14.5); RDW Standard Deviation 40.9 fL (36.4-46.3); Red Blood Count 4.52 M/uL (4.70-6.10); White Blood Count 14.29 K/ul (4.8-10.8)
[2023-07-10 05:47] LABS: Calcium 8.7 mg/dl (8.6-10.3); Creatinine Clr Calc Pharmacy 94.4 ml/min; Est GFR (African American) 98.5 ml/min; Est GFR (Non-African American) 84.9 ml/min; Magnesium 1.9 mg/dl (1.7-2.4); Phosphorus 2.3 mg/dl (2.5-4.9); Potassium 3.8 mmol/L (3.5-5.1)
[2023-07-10] MEDS: INSULIN ASPART PER UNIT CHARGE SC SCH ×4 (07:51→20:27)
--- NOTE | 2023-07-10 08:18 | Critical Care Progress Note ---
Date of Service July 10, 2023 Assessment & Plan (1) NSTEMI (non-ST elevated myocardial infarction): (2) Dyslipidemia: (3) Tobacco use: (4) Hypertension: Plan Impression: 52-year-old male with non-ST elevation myocardial infarction who initially denied cardiac catheterization taken later to the [facility] with drug- eluting stent x 2 in the LAD and 1 drug-eluting stent in the circumflex. He is pain-free and doing well clinically. Recommendations: 1. Non-ST elevation myocardial infarction: Per cardiology. Continue dual antiplatelet agents and metoprolol. Blood pressure is high enough to allow titration of FITO inhibitor currently. Needs cardiac rehab in the outpatient setting. 2. Pulmonary nodules: No prior imaging to document stability. Recommend follow-up noncontrast CT scan in 3 to 6 months. Additional imaging will be dictated based on behavior those nodules. 3. Questionable COPD/tobacco history: Smoking cessation recommended. Recommend outpatient PFTs. I offered the patient a trial of inhaler but he declines at this point in time. 4. Hyperlipidemia: Continue atorvastatin 5. Hypertension: Controlled on metoprolol Above recommendations and plan were extensively discussed with the patient as well as with his at bedside. Disposition per cardiology. Critical care issues resolved. Critical care will sign off. Feel free to contact us with questions or concerns Admission and Anticipated Discharge Date Admission Date: July 08, 2023 Subjective Patient seen and examined. EMR reviewed. Discussed with bedside critical care nurse and on multidisciplinary rounds. Patient is doing well clinically. He is complaining of some mild left forearm pain but no pain at the site of his arterial cannulation. He is not having any numbness and tingling in his hands or fingers. Infrastructure Project Manager strength is normal. He has been out of bed to the [facility] without difficulty. No shortness of breath or chest pain. He is tolerating a diet. He denies any breathing problems. No nausea or vomiting. Overall he feels well. Review of Systems Review of Systems: All systems reviewed & are unremarkable except as noted in Subjective Physical Exam Constitutional: WD/WN, vitals as above Neck: trachea midline, no thyromegaly Respiratory: no respiratory distress, no labored breathing, no cough and not tachypneic Auscultation: no crackles and no wheezes Cardiovascular: RRR, no murmur, no edema Gastrointestinal (Abdomen): normal bowel sounds, soft, nontender, no hepatosplenomegaly Musculoskeletal: Extremities: extremities normal to inspection Skin: no rashes, warm and dry Lymphatic: no cervical lymphadenopathy Results & Data Results & Data Vital Signs (Past 12 Hours) Vital Signs Pulse Resp BP Pulse Ox O2 Del Method 07/10/23 07:00 76 19 98/64 L 95 Room Air 07/10/23 06:00 74 18 97/66 L 96 Room Air 07/10/23 05:00 97/67 L 07/10/23 05:00 74 21 94 07/10/23 04:00 105/70 07/10/23 04:00 81 21 95 07/10/23 03:00 108/70 07/10/23 03:00 78 22 92 07/10/23 02:00 80 19 96 07/10/23 02:00 90/78 L 07/10/23 01:00 84/47 L 07/10/23 01:00 78 21 93 07/10/23 00:00 122/70 07/10/23 00:00 84 17 96 07/09/23 23:00 115/68 07/09/23 23:00 85 19 95 07/09/23 22:00 115/74 07/09/23 22:00 82 23 94 07/09/23 21:10 114/72 07/09/23 21:10 90 20 96 07/09/23 21:00 89 19 95 Critical Care Results & Data Vital Signs (Past 12 Hours) Vital Signs Pulse Resp BP Pulse Ox O2 Del Method 07/10/23 07:00 76 19 98/64 L 95 Room Air 07/10/23 06:00 74 18 97/66 L 96 Room Air 07/10/23 05:00 97/67 L 07/10/23 05:00 74 21 94 07/10/23 04:00 105/70 07/10/23 04:00 81 21 95 07/10/23 03:00 108/70 07/10/23 03:00 78 22 92 07/10/23 02:00 80 19 96 07/10/23 02:00 90/78 L 07/10/23 01:00 84/47 L 07/10/23 01:00 78 21 93 07/10/23 00:00 122/70 07/10/23 00:00 84 17 96 07/09/23 23:00 115/68 07/09/23 23:00 85 19 95 07/09/23 22:00 115/74 07/09/23 22:00 82 23 94 07/09/23 21:10 114/72 07/09/23 21:10 90 20 96 07/09/23 21:00 89 19 95 Lab & Micro Results (Past 24 Hours) RBC 4.52 M/uL (4.70-6.10) L 07/10/23 WBC 14.29 K/ul (4.8-10.8) H 07/10/23 Hgb 13.0 g/dl (14.0-18.0) L 07/10/23 Hct 37.8 % (42.0-52.0) L 07/10/23 MCV 83.6 fL (80.0-100.0) 07/10/23 MCH 28.8 pg (25.0-34.0) 07/10/23 MCHC 34.4 g/dL (32.0-36.0) 07/10/23 RDW Standard Deviation 40.9 fL (36.4-46.3) 07/10/23 RDW Coefficient of Variation 13.2 % (11.5-14.5) 07/10/23 Plt Count 228 K/uL (130-400) 07/10/23 MPV 9.7 fL (9.4-12.4) 07/10/23 Neutrophils (%) (Auto) 62.1 % 07/10/23 Lymphocytes (%) (Auto) 27.4 % 07/10/23 Monocytes # (Auto) 1.22 K/uL (0.11-0.59) H 07/10/23 Eosinophils # (Auto) 0.17 K/uL (0.00-0.50) 07/10/23 Immature Granulocyte % (Auto) 0.4 % 07/10/23 Neutrophils # (Auto) 8.87 K/uL (1.40-6.50) H 07/10/23 Lymphocytes # (Auto) 3.91 K/uL (1.20-3.40) H 07/10/23 Monocytes # (Auto) 1.22 K/uL (0.11-0.59) H 07/10/23 Eosinophils # (Auto) 0.17 K/uL (0.00-0.50) 07/10/23 Basophils # (Auto) 0.06 K/uL (0.00-0.20) 07/10/23 Immature Granulocyte # (Auto) 0.06 K/uL (0.01-0.20) 4 Na 134 mmol/L (136-145) L 07/10/23 K 3.8 mmol/L (3.5-5.1) 07/10/23 Cl 103 mmol/L (98-107) 07/10/23 CO2 23 mmol/L (21-32) 07/10/23 Anion Gap 8 (3-11) 07/10/23 BUN 16 mg/dl (6-23) 07/10/23 Creatinine 1.00 mg/dl (0.6-1.4) 07/10/23 Estimated GFR ( Amer) 98.5 ml/min 07/10/23 Estimated GFR (Non-Af Amer) 84.9 ml/min 07/10/23 BUN/Creatinine Ratio 16.0 (10-20) 07/10/23 Glu 121 mg/dl (70-99(Fasting)) H 07/10/23 Ca 8.7 mg/dl (8.6-10.3) 07/10/23 Phosphorus Level 2.3 mg/dl (2.5-4.9) L 07/10/23 Mg 1.9 mg/dl (1.7-2.4) 07/10/23 04:43 Calcium Level 8.7 mg/dl (8.6-10.3) 07/10/23 04:43 I & O Totals 24 Hours 07/09/23 07/10/23 07/11/23 06:59 06:59 06:59 Intake Total 727.366 / 494.263 9843.45 / 2676.45 Output Total 1200 / 1200 400 / 400 Balance -472.634 / -084.850 5478.45 / 2276.45 Cumulative 07/08/23 13:13 thru 07/10/23 06:00 Intake Total 3403.816 Output Total 1600 Balance 1803.816 RT Ventilator Mngmt (Last Documented) Ventilator Ordered Settings Respiratory Rate 19 07/10/23 07:00 Ventilator - PT Measurements Respiratory Rate 19 Coding Level of Care Code 31500 SUB INP/OBS CARE 2/35MIN Diagnoses NSTEMI (non-ST elevated myocardial infarction) I21.4 Dyslipidemia E78.5 Tobacco use Z72.0 Hypertension I10
[2023-07-10] MEDS: METOPROLOL TARTRATE 25 MG TAB PO SCH ×2 (08:43→20:29)
[2023-07-10] MEDS: TICAGRELOR 90 MG TAB PO SCH ×2 (08:43→20:29)
[2023-07-10] MEDS: ASPIRIN 81 MG ECTAB PO SCH (08:43)
[2023-07-10] MEDS: LOSARTAN POTASSIUM 25 MG TAB PO SCH (08:44)
--- NOTE | 2023-07-10 11:37 | Cardiology Progress Note ---
Date of Service July 10, 2023 Assessment & Plan (1) NSTEMI (non-ST elevated myocardial infarction): (2) Tobacco use: (3) Dyslipidemia: Plan 52-year-old male present to the hospital with NSTEMI 07/08/2023. Initially declined cardiac catheterization however, was taken to the Behavioral Health Clinician in the a.m. 07/09/2023. Successful implantation of LAD and left circumflex stents. Reviewed importance of continuing dual antiplatelet therapy uninterrupted for a minimum of 12 months post myocardial infarction. Continue metoprolol, losartan, aspirin, Brilinta, and high intensity statin therapy. Patient will require at least additional 24-48 hours of observation due to delay in percutaneous intervention in the setting of acute myocardial infarction. I spent a total of 45 minutes on the date of service in preparation, delivery, and documentation of the care provided to this patient, excluding any time spent in the performance of separately billed services. Admission and Anticipated Discharge Date Admission Date: July 08, 2023 Subjective 52-year-old patient seen examined at the bedside. Remains in sinus rhythm on telemetry with isolated 6 beat zoila of nonsustained ventricular tachycardia. No associated symptoms. Repeat echocardiogram demonstrates low normal LV systolic function. There is a moderate size apical, posterior, and lateral wall motion abnormality with hypokinesis to akinesis of the segments. Denies recurrent chest discomfort or shortness of breath. present at bedside. Patient and his have several questions regarding medications, prognosis, and follow-up. Review of Systems Review of Systems: All systems reviewed & are unremarkable except as noted in Subjective Physical Exam Constitutional: well nourished; no acute distress Respiratory: no respiratory distress, no labored breathing and no retractions Cardiovascular: Rate/Rhythm: regular rate and regular rhythm Heart Sounds: normal S1 and normal S2; no murmur Vessels: radial pulses present; no JVD and no carotid bruit Extremities: no edema Neurologic: CN's II-XI intact bilaterally and moves all extremities; no focal motor deficits Results & Data Vital Signs (Past 12 Hours) Vital Signs Pulse Resp BP Pulse Ox O2 Del Method 07/10/23 07:00 76 19 98/64 L 95 Room Air 07/10/23 06:00 74 18 97/66 L 96 Room Air 07/10/23 05:00 97/67 L 07/10/23 05:00 74 21 94 07/10/23 04:00 105/70 07/10/23 04:00 81 21 95 07/10/23 03:00 108/70 07/10/23 03:00 78 22 92 07/10/23 02:00 80 19 96 07/10/23 02:00 90/78 L 07/10/23 01:00 84/47 L 07/10/23 01:00 78 21 93 07/10/23 00:00 122/70 07/10/23 00:00 84 17 96 Laboratory Results CBC 07/10/23 Range/Units 04:43 WBC 14.29 H (4.8-10.8) K/ul RBC 4.52 L (4.70-6.10) M/uL Hgb 13.0 L (14.0-18.0) g/dl Hct 37.8 L (42.0-52.0) % Plt Count 228 (130-400) K/uL Neut # (Auto) 8.87 H (1.40-6.50) K/uL Lymph # (Auto) 3.91 H (1.20-3.40) K/uL Esmeralda # (Auto) 1.22 H (0.11-0.59) K/uL Eos # (Auto) 0.17 (0.00-0.50) K/uL Baso # (Auto) 0.06 (0.00-0.20) K/uL Comprehensive Metabolic Panel 07/10/23 Range/Units 04:43 Sodium 134 L (136-145) mmol/L Potassium 3.8 (3.5-5.1) mmol/L Chloride 103 (98-107) mmol/L Carbon Dioxide 23 (21-32) mmol/L BUN 16 (6-23) mg/dl Creatinine 1.00 (0.6-1.4) mg/dl Glucose 121 H (70-99(Fasting)) mg/dl Calcium 8.7 (8.6-10.3) mg/dl Intake and Output 07/09/23 07/10/23 07/10/23 22:59 06:59 14:59 Intake Total 1240 / 2676.45 1400 / 2676.45 Output Total 400 / 400 Balance 840 / 2276.45 1400 / 2276.45 Intake: IV 1000 / 1036.45 Sodium Chloride 0.9% 1,000 ml @ 1000 / 1000 125 mls/hr IV .Q8H [facility] Rx#: [id number] Oral 1240 / 1640 400 / 1640 Output: Urine 400 / 400 Other: # Unmeasured Voids 1 2
--- NOTE | 2023-07-10 11:40 | Pharmacy Report ---
Pharmacy Glycemic Short Note 2 - Date of Service July 10, 2023 - Glycemic Short BSG Results (Last 24 hours): 07/09/23 07/09/23 07/10/23 16:24 20:50 04:43 Glucose 121 H POC Glucose 121 H 132 H 07/10/23 07/10/23 07:06 11:26 Glucose POC Glucose 123 H 150 H OUTPATIENT ANTIDIABETIC REGIMEN: * No antidiabetic medications * HbA1c pending - lab was unreadable by our equipment so sample sent to [facility] for further processing ASSESSMENT: 07/10: * Patient received 10 units of insulin yesterday, all bolus. BSGs were: 067-523-336-132 mg/dL. * Fasting of 123 mg/dL this AM is at goal. Will continue with current regimen. Hesitant to make any changes to regimen until A1c is known. Lab sent to [facility] for further processing. 07/09: * 52 yo M admitted on 07/08/23 secondary to NSTEMI. Pharmacy has been consulted to assist with inpatient glycemic management. Unknown if patient is diabetic at this time as we await A1c level. * BSGs last night were 181-148 mg/dL. Patient has been NPO through this morning and is now s/p cardiac catheterization today. A diet will be ordered with lunch today. * Fasting BSG was 145 mg/dL this morning. Will place a scaled Lantus order for this evening for hyperglycemia. Novolog will be continued based on weight/stress of 2. PLAN FOR INPATIENT GLYCEMIC CONTROL: * Hold outpatient oral diabetes medications * Basal insulin * Lantus 0-10 units SC HS per scale (see eMAR for more details) * Bolus insulin * NovoLog per scale ACHS or Q6hrs while NPO * Goal Range: Low 110 mg/dL - High 140 mg/dL * Correction Factor: 25 mg/dL/unit * Nutritional / Prandial insulin per carb ratio of 1 unit per 9 grams CHO consumed
--- NOTE | 2023-07-10 12:31 | Electrocardiogram Report ---
Test Reason : Blood Pressure : / mmHG Vent. Rate : 087 BPM Atrial Rate : 087 BPM P-R Int : 176 ms QRS Dur : 090 ms QT Int : 376 ms P-R-T Axes : 069 075 058 degrees QTc Int : 452 ms Normal sinus rhythm Possible Left atrial enlargement ST depression, consider subendocardial injury Abnormal ECG When compared with ECG of 08-JUL-2023 13:43, Premature ventricular complexes are no longer Present Confirmed by Theo Gong ([id number]) on 07/10/2023 12:30:59 PM Referred By: REFERRED SELF Confirmed By:Theo Gong
--- NOTE | 2023-07-10 18:58 | Hospitalist Progress Note ---
Date of Service July 10, 2023 Assessment & Plan (1) Chest pain: (2) NSTEMI (non-ST elevated myocardial infarction): Plan: per admitting service notes with addendum: Patient is 48-year-old male with PMH tobacco use presented to ER with c/o CP, SOB, diaphoresis today. [facility]oady patient arrived to ER with continued chest pain and back pain. He was hypertensive with BP 190/121 and pulse of 98, R: 20, 99% on RA and was afebrile. Initial concern for dissection and had CTA chest that was negative for aortic dissection. Initial troponin: 90. EKG with sinus rhythm rate 87 with PVC, + ST depression septal, anterior leads. In ER given labetalol 10mg IV, Lopressor 5mg IV, Zofran, morphine 4mg IV. Patient reports continued CP 6/10 on pain scale. Repeat vitals with HR: 88, BP: 160/121. 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 Patient has refused cardiac cath at this time. Echo: EF: 55-60%, mild concentric LVH, small sized apical wall motion abnormality with hypokinesis of the segments, Grade I diastolic dysfunction Monitor Vitals Repeat EKG in am Will trend troponin lipid panel in AM. Start atorvastatin Start daily aspirin Start metoprolol tartrate 25mg po BID Nitropaste IV Heparin Morphine prn Cardiology consult, Seen by Dr Farrell, and interventionalist high school coach, Dr Ferrara. Patient has denied cardiac cath. It is reported he may re-consider tomorrow. Will make NPO midnight CBC, BMP in am 07/09 Status post cardiac cath: Severe multivessel coronary artery disease status post PCI of the LAD and the circumflex 07/10 Stable overall BP on the lower side this morning, losartan dose decreased Continue aspirin, Brilinta, losartan, metoprolol, atorvastatin Continue to monitor closely (3) Elevated glucose: Plan: Random glucose: 175 A1c in AM Novolog sliding scale per protocol A1c pending (4) Abnormal CT scan, chest: (5) Dyslipidemia: Plan: 07/16/21 Lipid panel: Total: 252, LDL: 180, HDL: 41, Triglycerides: 155. TG 148, cholesterol 207, LDL 144, HDL 33 Lipitor 80 mg p.o. daily (6) Tobacco use: Plan: Patient reported to have cut back Smoking cessation encouraged (7) Pulmonary nodules: Plan: CTA Chest: 4 mm nodule, 4 mm nodule within the left lower lobe, 4 mm nodule within the left lower lobe, a 7 mm groundglass nodule right upper lobe, 3 mm right middle lobe nodule Will need follow up with outpatient CT chest DVT Prophylaxis SCDs Admission and Anticipated Discharge Date Admission Date: July 08, 2023 Subjective Follow-up status post NSTEMI, etc. Seen resting in bed, comfortable States he feels fine overall No chest pain since yesterday No shortness of breath, palpitations, dizziness No other new symptoms Review of Systems Review of Systems: all noted and negative except for above Physical Exam Physical Exam: General- oriented x 3, not in distress, speaks in sentences with no effort or accessory muscle use Eyes- anicteric Neck- no JVD Lungs- clear breath sounds bilaterally, no rales/wheezes Heart- normal rate, regular rhythm; no murmurs Abdomen- normal bowel sounds, nondistended, soft, nontender Extremities- no pretibial edema, no calf tenderness Neuro- alert, oriented x 3; no gross focal neurologic deficits Skin- warm & dry Results & Data Results & Data Vital Signs (Past 12 Hours) Vital Signs Temp Pulse Resp BP Pulse Ox O2 Del Method 07/10/23 16:00 81 17 117/85 98 Room Air 07/10/23 16:00 36.6 C 07/10/23 12:00 71 23 105/72 98 Room Air 07/10/23 12:00 36.8 C 07/10/23 07:00 36.8 C 07/10/23 07:00 76 19 98/64 L 95 Room Air all noted and reviewed including below (1) Chest pain Chest pain type: unspecified Qualified Code(s): R07.9 - Chest pain, unspecified
[2023-07-10] MEDS: LANTUS PER UNIT CHARGE SC SCH (20:27)
[2023-07-10] MEDS: ATORVASTATIN 40 MG TAB PO SCH (20:29)
--- NOTE | 2023-07-10 20:35 | Electrocardiogram Report ---
Test Reason : Blood Pressure : / mmHG Vent. Rate : 076 BPM Atrial Rate : 076 BPM P-R Int : 166 ms QRS Dur : 082 ms QT Int : 414 ms P-R-T Axes : 079 088 058 degrees QTc Int : 465 ms Normal sinus rhythm Normal ECG When compared with ECG of 08-JUL-2023 14:25, (unconfirmed) ST no longer depressed in Inferior leads ST no longer depressed in Anterior leads Confirmed by Theo Gong ([id number]) on 07/10/2023 8:35:24 PM Referred By: REFERRED SELF Confirmed By:Theo Gong
--- NOTE | 2023-07-10 20:37 | Electrocardiogram Report ---
Test Reason : Blood Pressure : / mmHG Vent. Rate : 083 BPM Atrial Rate : 083 BPM P-R Int : 162 ms QRS Dur : 084 ms QT Int : 394 ms P-R-T Axes : 077 088 065 degrees QTc Int : 462 ms Normal sinus rhythm Normal ECG When compared with ECG of 09-JUL-2023 05:45, (unconfirmed) No significant change was found Confirmed by Theo Gong ([id number]) on 07/10/2023 8:36:53 PM Referred By: REFERRED SELF Confirmed By:Theo Gong
--- NOTE | 2023-07-10 20:42 | Electrocardiogram Report ---
Test Reason : Blood Pressure : / mmHG Vent. Rate : 075 BPM Atrial Rate : 075 BPM P-R Int : 168 ms QRS Dur : 080 ms QT Int : 402 ms P-R-T Axes : 080 092 065 degrees QTc Int : 448 ms Normal sinus rhythm Possible Right ventricular hypertrophy Abnormal ECG When compared with ECG of 09-JUL-2023 07:54, (unconfirmed) No significant change was found Confirmed by Theo Gong ([id number]) on 07/10/2023 8:42:43 PM Referred By: REFERRED SELF Confirmed By:Theo Gong
[2023-07-10 23:17] LABS: EAG mmol/L 8.4 mmol/L; HA1C 6.9 (<5.7)
[2023-07-11] MEDS: INSULIN ASPART PER UNIT CHARGE SC SCH ×2 (08:05→11:53)
[2023-07-11] MEDS: ASPIRIN 81 MG ECTAB PO SCH (08:49)
[2023-07-11] MEDS: METOPROLOL TARTRATE 25 MG TAB PO SCH (08:50)
[2023-07-11] MEDS: TICAGRELOR 90 MG TAB PO SCH (08:50)
[2023-07-11] MEDS: LOSARTAN POTASSIUM 25 MG TAB PO SCH (08:50)
--- NOTE | 2023-07-11 11:36 | Pharmacy Report ---
Pharmacy Glycemic Short Note 2 - Date of Service July 11, 2023 - Glycemic Short BSG Results (Last 24 hours): 07/10/23 07/10/23 07/11/23 16:16 20:26 06:58 POC Glucose 107 H 114 H 131 H 07/11/23 11:11 POC Glucose 99 OUTPATIENT ANTIDIABETIC REGIMEN: * No antidiabetic medications * HbA1c: 6.9% ASSESSMENT: 07/11: * BSGs within goal the last 24h: 943-189-803-99mg/dL. Received 9 units of bolus insulin yesterday and no basal. * Tolerating diet, other stressors stable. * Given fasting BSGs within goal and A1C <7, will discontinue scaled basal order. Continue Novolog with a slightly reduced carb ratio. 07/10: * Patient received 10 units of insulin yesterday, all bolus. BSGs were: [phone] mg/dL. * Fasting of 123 mg/dL this AM is at goal. Will continue with current regimen. Hesitant to make any changes to regimen until A1c is known. Lab sent to [facility] for further processing. 07/09: * 52 yo M admitted on 07/08/23 secondary to NSTEMI. Pharmacy has been consulted to assist with inpatient glycemic management. Unknown if patient is diabetic at this time as we await A1c level. * BSGs last night were 181-148 mg/dL. Patient has been NPO through this morning and is now s/p cardiac catheterization today. A diet will be ordered with lunch today. * Fasting BSG was 145 mg/dL this morning. Will place a scaled Lantus order for this evening for hyperglycemia. Novolog will be continued based on weight/stress of 2. PLAN FOR INPATIENT GLYCEMIC CONTROL: * Hold outpatient oral diabetes medications * Basal insulin * none * Bolus insulin * NovoLog per scale ACHS or Q6hrs while NPO * Goal Range: Low 110 mg/dL - High 140 mg/dL * Correction Factor: 25 mg/dL/unit * Nutritional / Prandial insulin per carb ratio of 1 unit per 10 grams CHO consumed
--- NOTE | 2023-07-11 12:02 | Cardiology Progress Note ---
Date of Service July 11, 2023 Assessment & Plan (1) NSTEMI (non-ST elevated myocardial infarction): (2) Tobacco use: (3) Dyslipidemia: Plan 52-year-old male present to the hospital with NSTEMI 07/08/2023. Initially declined cardiac catheterization however, was taken to the [facility] [employer] [facility] in the a.m. 07/09/2023. Successful implantation of LAD and left circumflex stents. Left circumflex likely culprit vessel with evidence of posterior lateral hypokinesis on echocardiogram. Reviewed importance of continuing dual antiplatelet therapy uninterrupted for a minimum of 12 months post myocardial infarction. Continue metoprolol, losartan, aspirin, Brilinta, and high intensity statin therapy. Patient instructed to avoid strenuous activity and remain off work until cardiology follow-up in 7 to 14 days. Agreeable to cardiac rehab referral. Admission and Anticipated Discharge Date Admission Date: July 08, 2023 Subjective Patient seen and examined at bedside. Slept well overnight. No ventricular tachycardia on telemetry. Denies chest pain or shortness of breath. present at bedside. Patient denies orthopnea, PND, or lower extremity edema. Tolerating current medications. Voices concern regarding intermittent low systolic blood pressure readings. Denies lightheadedness, dizziness, syncope, or near syncope. Review of Systems Review of Systems: All systems reviewed & are unremarkable except as noted in Subjective Physical Exam Constitutional: well nourished; no acute distress Respiratory: no respiratory distress, no labored breathing and no retractions Cardiovascular: Rate/Rhythm: regular rate and regular rhythm Heart Sounds: normal S1 and normal S2; no murmur Vessels: radial pulses present; no JVD and no carotid bruit Extremities: no edema Gastrointestinal (Abdomen): Inspection/Auscultation: abdomen normal to inspection; abdomen not distended Percussion/Palpation: abdomen soft; abdomen nontender, no guarding and abdomen not rigid Neurologic: CN's II-XI intact bilaterally and moves all extremities; no focal motor deficits Results & Data Vital Signs (Past 12 Hours) Vital Signs Temp Pulse Resp BP Pulse Ox 07/11/23 04:11 36.7 C 07/11/23 04:00 93/61 L 07/11/23 04:00 67 20 94 Laboratory Results Intake and Output 07/10/23 07/11/23 07/11/23 22:59 06:59 14:59 Intake Total 100 / 800 700 / 800 Balance 100 / 800 700 / 800 Intake: Oral 100 / 800 700 / 800 Other: # Unmeasured Voids 1 1 Weight 87 kg Weight Measurement Method Built in [facility]
[2023-07-11 12:46] LABS: BUN Creatinine Ratio 16.7 (10-20); Calcium 9.1 mg/dl (8.6-10.3); Creatinine Clr Calc Pharmacy 85.5 ml/min; Est GFR (African American) 96.1 ml/min; Est GFR (Non-African American) 82.9 ml/min; Potassium 4.2 mmol/L (3.5-5.1)
--- NOTE | 2023-07-11 18:44 | Discharge Summary ---
Discharge Summary Date of Service July 11, 2023 Notes For Next Care Provider CTA Chest: 4 mm nodule, 4 mm nodule within the left lower lobe, 4 mm nodule within the left lower lobe, a 7 mm groundglass nodule right upper lobe, 3 mm right middle lobe nodule Will need follow up with outpatient CT chest Medication Changes From Visit Aspirin, Brilinta-antiplatelet agents to prevent occlusion of cardiac stent and heart attack -Need to be taken uninterrupted every day for minimum of 12-month Metoprolol-for heart rate control Losartan-for blood pressure control Atorvastatin-for control of cholesterol level Admission HPI Per Admitting Provider Patient is 48-year-old male with PMH tobacco use presented to ER with c/o CP today. History obtained from patient and outpatient chart review. 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 Also describes pain in his back. He states felt anxious and SOB. States had sweats, left hand numbness, and indigestion sensation. Reports took two aspirin prior to ER arrival. States had significant other come get him from work and take him home as he wasn't feeling well. Then decided to present to ER. Denies fever/chills, N/V/D/C, DOE, dizziness, syncope, vision changes, cough, sore throat, rhinorrhea, abdominal pain, extremity weakness, extremity edema, rashes, or urinary symptoms. [place] patient arrived to ER with continued chest pain and back pain. He was hypertensive with BP 190/121 and pulse of 98, R: 20, 99% on RA and was afebrile. Initial concern for dissection and had CTA chest that was negative for aortic dissection. Initial troponin: 90. EKG with sinus rhythm rate 87 with PVC, + ST depression septal, anterior leads. In ER given labetalol 10mg IV, Lopressor 5mg IV, Zofran, morphine 4mg IV. Patient reports continued CP 6/10 on pain scale. Repeat vitals with HR: 88, BP: 160/121. Heparin was ordered however patient taken to [facility] prior to administration. Patient has refused cardiac cath at this time. Per outpatient chart review: 07/16/21 seen in outpatient PCP office for intermittent episodes of CP, SOB lasted several minutes and self-resolved. No reported exercise intolerance at that time. EKG at that time was sinus rhythm, right atrial enlargement. 07/16/21 Lipid panel: Total: 252, LDL: 180, HDL: 41, Triglycerides: 155. Admission Exam Per Admitting Provider On exam he is mentating normally and in no acute distress. BP is 166/104 pulse 91, no increased respiratory effort and he is oxygenating well on room air. He is afebrile. Cardiac exam reveals regular rate and rhythm with S1/2 heard and no murmurs Rubs. He Has No Peripheral Edema. There Is No JVD Present. Extremities Are Warm and Well-Perfused. Lungs Are Clear to Auscultation Bilaterally. Abdomen Soft Nontender Not distended. Principal Dx & Hospital Course #1 = Principal Diagnosis (1) Chest pain: (2) NSTEMI (non-ST elevated myocardial infarction): per admitting service notes with addendum: Patient is 48-year-old male with PMH tobacco use presented to ER with c/o CP, SOB, diaphoresis today. 07/08 Day of admission [place] patient arrived to ER with continued chest pain and back pain. He was hypertensive with BP 190/121 and pulse of 98, R: 20, 99% on RA and was afebrile. Initial concern for dissection and had CTA chest that was negative for aortic dissection. Initial troponin: 90. EKG with sinus rhythm rate 87 with PVC, + ST depression septal, anterior leads. In ER given labetalol 10mg IV, Lopressor 5mg IV, Zofran, morphine 4mg IV. Patient reports continued CP 6/10 on pain scale. Repeat vitals with HR: 88, BP: 160/121. Heparin was ordered however patient taken to [facility] prior to administration. Patient has refused cardiac cath at this time. Echo: EF: 55-60%, mild concentric LVH, small sized apical wall motion abnormality with hypokinesis of the segments, Grade I diastolic dysfunction 07/09 Patient agreed to proceed with cardiac cath Status post cardiac cath: Severe multivessel coronary artery disease status post PCI of the LAD and the circumflex Patient remains stable after cardiac catheterization Tolerating medications well Discharge recommendations: Aspirin 81 mg and Brilinta uninterrupted times at least 1 year Metoprolol Losartan Lipitor 80 mg daily Follow-up with cardiology clinic in 1 to 2 weeks Cardiac rehab referral (3) Elevated glucose: Random glucose: 175 A1c 6.9 certified lactation educator consulted-patient prefers diet and exercise for now Please follow-up closely as an outpatient (4) Abnormal CT scan, chest: (5) Dyslipidemia: 07/16/21 Lipid panel: Total: 252, LDL: 180, HDL: 41, Triglycerides: 155. TG 148, cholesterol 207, LDL 144, HDL 33 Lipitor 80 mg p.o. daily (6) Tobacco use: Patient reported to have cut back Smoking cessation encouraged (7) Pulmonary nodules: CTA Chest: 4 mm nodule, 4 mm nodule within the left lower lobe, 4 mm nodule within the left lower lobe, a 7 mm groundglass nodule right upper lobe, 3 mm right middle lobe nodule Will need follow up with outpatient CT chest DVT Prophylaxis SCDs Discharge Exam General- oriented x 3, not in distress, speaks in sentences with no effort or accessory muscle use Eyes- anicteric Neck- no JVD Lungs- clear breath sounds bilaterally, no rales/wheezes Heart- normal rate, regular rhythm; no murmurs Abdomen- normal bowel sounds, nondistended, soft, nontender Extremities- no pretibial edema, no calf tenderness Neuro- alert, oriented x 3; no gross focal neurologic deficits Skin- warm & dry Updated Medication List Medication Instructions Recorded Confirmed Type aspirin 81 mg tablet,delayed 81 mg PO QAM 30 days #30 tabs 07/11/23 Rx release atorvastatin 40 mg tablet 80 mg (2 x 40 mg) PO Q24H 30 days 07/11/23 Rx #60 tabs losartan 25 mg tablet 12.5 mg (1/2 x 25 mg) PO QAM 30 07/11/23 Rx days #15 tabs metoprolol tartrate 25 mg tablet 25 mg PO BID 30 days #60 tabs 07/11/23 Rx ticagrelor 90 mg tablet (Brilinta) 90 mg PO BID 30 days #60 tabs 07/11/23 Rx Hospital Stay Data Consultations 07/08/23 14:49 Consult Cardiology Stat ED Decision to Admit Stat 07/08/23 14:56 Consult Cardiac Catheterization Stat 07/08/23 16:39 Consult Cardiology Routine 07/08/23 19:03 Consult Digital Camera Technician Routine 07/11/23 12:05 Consult Cardiac Rehabilitation Routine Procedures Performed Operation Date: 07/09/23 08:30 Actual Procedures p Cineradiography w/Routine Exam - Buster Ferrara MD, PhD p Aspiration/PCI w/GURDEEP for Stemi - Buster Ferrara MD, PhD s Cath, Coronaries ONLY (no LV) - Buster Ferrara MD, PhD p Drug Eluting Stent SGl Vessel - Buster Ferrara MD, PhD s Drug Eluting Stent each ADDTL Vessel - Buster Ferrara MD, PhD Diagnostic Imagining Performed Laboratory Results WBC 14.29 K/ul (4.8-10.8) H 07/10/23 04:43 RBC 4.52 M/uL (4.70-6.10) L 07/10/23 04:43 Hgb 13.0 g/dl (14.0-18.0) L 07/10/23 04:43 POC Hgb 15.3 g/dl (14.0-18.0) 07/08/23 13:56 Hct 37.8 % (42.0-52.0) L 07/10/23 04:43 POC Hct 45 % (42-52) 07/08/23 13:56 MCV 83.6 fL (80.0-100.0) 07/10/23 04:43 MCH 28.8 pg (25.0-34.0) 07/10/23 04:43 MCHC 34.4 g/dL (32.0-36.0) 07/10/23 04:43 RDW Std Deviation 40.9 fL (36.4-46.3) 07/10/23 04:43 RDW Coeff of Pauline 13.2 % (11.5-14.5) 07/10/23 04:43 Plt Count 228 K/uL (130-400) 07/10/23 04:43 MPV 9.7 fL (9.4-12.4) 07/10/23 04:43 Immature Gran % (Auto) 0.4 % 07/10/23 04:43 Neut % (Auto) 62.1 % 07/10/23 04:43 Lymph % (Auto) 27.4 % 07/10/23 04:43 Thayer % (Auto) 8.5 % 07/10/23 04:43 Eos % (Auto) 1.2 % 07/10/23 04:43 Baso % (Auto) 0.4 % 07/10/23 04:43 Neut # (Auto) 8.87 K/uL (1.40-6.50) H 07/10/23 04:43 Lymph # (Auto) 3.91 K/uL (1.20-3.40) H 07/10/23 04:43 Thayer # (Auto) 1.22 K/uL (0.11-0.59) H 07/10/23 04:43 Eos # (Auto) 0.17 K/uL (0.00-0.50) 07/10/23 04:43 Baso # (Auto) 0.06 K/uL (0.00-0.20) 07/10/23 04:43 Immature Gran # (Auto) 0.06 K/uL (0.01-0.20) 07/10/23 04:43 Neutrophils % (Manual) 55 % 07/09/23 05:05 Lymphocytes % (Manual) 24 % 07/09/23 05:05 Reactive Lymphs % (Man) 15 % 07/09/23 05:05 Monocytes % (Manual) 6 % 07/09/23 05:05 Neutrophils # (Manual) 8.29 K/uL (1.40-6.50) H 07/09/23 05:05 Total Absolute Neuts 8.29 K/uL (1.4-6.5) H 07/09/23 05:05 Lymphocytes # (Manual) 3.62 K/uL (1.2-3.4) H 07/09/23 05:05 Reactive Lymphs # 2.26 K/uL 07/09/23 05:05 Total Abs Lymphocytes 5.88 K/uL (1.2-3.4) H 07/09/23 05:05 Monocytes # (Manual) 0.90 K/uL (0.11-0.59) H 07/09/23 05:05 Blood Smear Review 07/09/23 05:05 RBC Morphology Unremarkable 07/09/23 05:05 PT 10.4 Seconds (9.0-12.0) 07/08/23 13:58 INR 0.9 (0.9-1.1) 07/08/23 13:58 APTT 24 Seconds (21-31) 07/08/23 13:58 PTT Ratio 0.9 07/08/23 13:58 Activ Coag Time Kaolin 261 SECONDS (94-140) H 07/09/23 08:59 Heparin Anti-Xa, LM Wt Cancelled 07/09/23 05:05 Heparin Anti-Xa, Unfract 0.63 IU/ml (0.3-0.7) 07/09/23 05:05 POC Sodium 139 mmol/L (135-144) 07/08/23 13:56 Sodium 136 mmol/L (136-145) 07/11/23 12:13 POC Potassium 4.1 mmol/L (3.3-5.0) 07/08/23 13:56 Potassium 4.2 mmol/L (3.5-5.1) 07/11/23 12:13 POC Chloride 103 mmol/L (101-112) 07/08/23 13:56 Chloride 105 mmol/L (98-107) 07/11/23 12:13 Carbon Dioxide 24 mmol/L (21-32) 07/11/23 12:13 POC Total CO2 23 mmol/L (24-31) L 07/08/23 13:56 Anion Gap 7 (3-11) 07/11/23 12:13 POC Anion Gap 18.0 mmol/L (16-25) 07/08/23 13:56 POC BUN 11 mg/dl (7-18) 07/08/23 13:56 BUN 17 mg/dl (6-23) 07/11/23 12:13 Creatinine 1.02 mg/dl (0.6-1.4) 07/11/23 12:13 POC Creatinine 0.9 mg/dl (0.6-1.3) 07/08/23 13:56 Est Cr Clr Drug Dosing 85.5 ml/min 07/11/23 12:13 Est GFR ( Amer) 96.1 ml/min 07/11/23 12:13 Est GFR (Non-Af Amer) 82.9 ml/min 07/11/23 12:13 BUN/Creatinine Ratio 16.7 (10-20) 07/11/23 12:13 Glucose 137 mg/dl (70-99(Fasting)) H 07/11/23 12:13 POC Glucose 99 mg/dl (70-99) 07/11/23 11:11 POC Glucose (other) 181 mg/dl (70-99) H 07/08/23 13:56 Estimat Average Glucose Cancelled 07/09/23 05:[address] Glu mmol/L 8.4 mmol/L 07/09/23 05:[address] Glu mg/dL 151 mg/dL 07/09/23 05:05 Hemoglobin A1c 6.9 (<5.7) H 07/09/23 05:05 Hemoglobin A1c Cancelled 07/09/23 05:05 Calcium 9.1 mg/dl (8.6-10.3) 07/11/23 12:13 POC Ioniz Calcium Michael 1.15 mmol/l (1.12-1.32) 07/08/23 13:56 Phosphorus 2.3 mg/dl (2.5-4.9) L 07/10/23 04:43 Magnesium 1.9 mg/dl (1.7-2.4) 07/10/23 04:43 Total Bilirubin 0.7 mg/dl (0.2-1.0) 07/08/23 13:58 AST 16 U/L (13-39) 07/08/23 13:58 ALT 24 U/L (7-52) 07/08/23 13:58 Alkaline Phosphatase 57 U/L (34-104) 07/08/23 13:58 Troponin I High Sens 703201.3 pg/ml (0-20) H* D 07/09/23 04:44 Total Protein 8.2 gm/dl (6.0-8.3) 07/08/23 13:58 Albumin 4.9 gm/dl (3.4-5.0) 07/08/23 13:58 Globulin 3.3 gm/dl (2.5-4.0) 07/08/23 13:58 Albumin/Globulin Ratio 1.5 (0.9-2) 07/08/23 13:58 Triglycerides 148 mg/dl (0-150) 07/09/23 04:44 Cholesterol 207 mg/dl (0-200) H 07/09/23 04:44 LDL Cholesterol, Calc 144 mg/dl 07/09/23 04:44 VLDL Cholesterol, Calc 30 mg/dl (0-30) 07/09/23 04:44 HDL Cholesterol 33 mg/dl 07/09/23 04:44 Cholesterol/HDL Ratio 6.3 (0-5) H 07/09/23 04:44 Lipase 43 U/L (11-82) 07/08/23 13:58 TSH 1.194 uIu/ml (0.300-4.500) 07/08/23 13:58 Urine Color Yellow 07/08/23 14:19 Urine Appearance Clear (Clear) 07/08/23 14:19 Urine pH 5.5 (4.5-7.5) 07/08/23 14:19 Ur Specific [place] 1.028 (1.000-1.030) 07/08/23 14:19 Urine Protein 2+ (Negative) H 07/08/23 14:19 Urine Glucose (UA) Negative (Negative) 07/08/23 14:19 Urine Ketones Trace (Negative) H 07/08/23 14:19 Urine Blood Negative (Negative) 07/08/23 14:19 Urine Nitrite Negative (Negative) 07/08/23 14:19 Urine Bilirubin Negative (Negative) 07/08/23 14:19 Urine Urobilinogen Negative (Negative) 07/08/23 14:19 Ur Leukocyte Esterase Negative (Negative) 07/08/23 14:19 Urine WBC (Auto) 1-5 /hpf (0-5) 07/08/23 14:19 Urine RBC (Auto) 0-4 /hpf (0-4) 07/08/23 14:19 U Hyaline Cast (Auto) 0 /lpf (0-5) 07/08/23 14:19 U Epithel Cells (Auto) 0-5 /lpf (0-5) 07/08/23 14:19 Urine Bacteria (Auto) Negative (Negative) 07/08/23 14:19 Nasal Screen MRSA (PCR) Negative (Negative) 07/08/23 Unknown Impressions Chest CTA 07/08/23 13:29 CHEST CTA for AORTIC DISSECTION CT DOSE: 1240.68 mGy.cm HISTORY: Chest pain into back, hypertension, hand tingling TECHNIQUE: Multiaxial CT images of the chest were performed both before and after the intravenous administration of contrast to evaluate the aorta. 3D/MIP images were also obtained. Sagittal and coronal reformations were also reviewed. A dose lowering technique was utilized adhering to the principles of ALARA. COMPARISON STUDY: None. FINDINGS: Noncontrast imaging through the chest shows no evidence for an intramural hematoma within the thoracic aorta. Normal caliber thoracic aorta with no evidence for a dissection. The central pulmonary arteries are patent. The heart is normal in size. No pleural or pericardial effusions. The thyroid gland enhances normally. No mediastinal or hilar lymphadenopathy. Normal esophagus. Limited views the upper abdomen demonstrate a normal spleen and adrenal glands. Hepatic steatosis. No acute fractures. No pneumothorax. A 4 mm nodule within the lingula on image 186. Small bibasilar linear densities favor subsegmental atelectasis are scarring. A 4 mm nodule within the left lower lobe on image 190 and a 4 mm nodule within the left lower lobe on image 186. A 7 mm groundglass nodule right upper lobe on image 152. A 3 mm right middle lobe nodule on image 179. No focal lung consolidations to suggest a pneumonia. No evidence for pulmonary edema. IMPRESSION: 1. No evidence for an aortic dissection. 2. Hepatic steatosis. 3. A few scattered subcentimeter pulmonary nodules as described above. Please refer to the chart below for recommended follow-up. Please refer to below summary of Fleischner criteria recommendations for follow- up of incidental CT nodules (Fernando Man, Guidelines for management of small pulmonary nodules detected on CT scans: A statement from the Fleischner Society, Radiology 237: [id number].) SOLID NODULES Solitary nodule size: <6 mm * Low risk patients: no follow-up needed * high risk patients: optional CT at 12 months Solitary nodule size: 6-8 mm * Low risk patients: follow-up at 6-12 months, then consider further follow-up at 18-24 months * high risk patients: initial follow-up CT at 6-12 months and then at 18-24 months if no change Solitary nodule size: >8 mm * either low or high risk patients - consider follow-up CT at 3 months, and/or CT-PET, and/or biopsy Multiple nodules size: <6 mm * Low risk patients: no routine follow-up * high risk patients: optional CT at 12 months Multiple nodules size: 6-8 mm * Low risk patients: follow-up at 3-6 months, then consider further follow-up at 18-24 months * high risk patients: follow-up at 3-6 months, then at 18-24 months if no change Multiple nodules size: >8 mm * Low risk patients: follow-up at 3-6 months, then consider further follow-up at 18-24 months * high risk patients: follow-up at 3-6 months, then at 18-24 months if no change Note: newly detected indeterminate nodule in persons 35 years of age or older. * Low risk patients: minimal or absent history of smoking and/or other known risk factors * high risk patients: history of smoking or of other known risk factors (e.g. first degree relative with lung cancer, or exposure to asbestos, radon, uranium) * if a nodule up to 8 mm is partly solid or is ground glass further follow-up is required after 24 months to exclude possible slow growing adenocarcinoma (MICHAEL) SUBSOLID NODULES Solitary pure ground-glass nodule * nodule size <6 mm - no CT follow-up required * nodule size >=6 mm - follow-up CT at 6-12 months, then every 2 years until 5 years Solitary part-solid nodule * nodule size <6 mm - no CT follow-up required * nodule size >=6 mm - follow-up CT at 3-6 months. If unchanged, and solid component remains <6 mm, then annual follow-up for 5 years Multiple subsolid nodules * nodule size <6 mm - follow-up CT at 3-6 months, consider further follow-up at 2 and 4 years if stable * nodule size >=6 mm - follow-up CT at 3-6 months, subsequent management based on the most suspicious nodule(s) ACT 112: Positive. There are findings on this exam that require communication between the performing entity and the patient following Patient Test Result Information Act ([place] Act 112) guidelines. Electronically signed by: Samir Payton M.D. 07/08/2023 2:32 PM 07/08/23 13:29 CT angio chest dissec wo/w con Stat 07/08/23 15:18 CL Cath Imgs for PACS use only Stat 07/09/23 08:17 CL Cath Imgs for PACS use only Stat Discharge Instructions Given to Patient (Per Discharging Provider) PLEASE REFER TO YOUR NEW MEDICATION LIST AND FOLLOW INSTRUCTIONS CAREFULLY. YOUR NEW MEDICATIONS INCLUDE: Aspirin, Brilinta-antiplatelet agents to prevent occlusion of cardiac stent and heart attack -Need to be taken uninterrupted every day for minimum of 12-month Metoprolol-for heart rate control Losartan-for blood pressure control Atorvastatin-for control of cholesterol level PLEASE CALL YOUR PRIMARY CARE PHYSICIAN OR RETURN TO THE ER IF WITH WORSENING OF SYMPTOMS, INCLUDING Chest pain, shortness of breath, palpitations, dizziness, muscle cramps, bleeding, etc. FOLLOW UP WITH PRIMARY CARE PHYSICIAN OUTLINED ABOVE. Follow-up with [facility] receiving checker Dr. Adam Zuñiga in 1-2 weeks. Please call his office for an appointment. Contact information outlined above. Total Time Total Time Spent Total Time Spent (In Minutes): >30 minutes
== END 2023-07-11 14:27 | disposition home or self-care (01) | DRG 322 ==
LOC: ED 13:13 → CC 15:17 → 2E 15:17 → SUATTDRO 15:20 → 1E 19:39
PROC: CLB.CCO (2023-07-09 08:30)